=== PATIENT | female | born 1950 | race Caucasian/White ===

== ENCOUNTER → 2016-11-03 | Outpatient (REF) | payer MEDICARE, MEDICAID ==
[2016-11-03 12:53] LABS: ALBUMIN 3.7 GM/DL (3.2-5.2); ALBUMIN/GLOBULIN RATIO 1.23 (1.00-1.93); ALKALINE PHOSPHATASE 108 U/L (45-117); ALT/SGPT 22 U/L (12-78); ANION GAP 11 MEQ/L (8-16); AST/SGOT 28 U/L (15-37); BILIRUBIN,TOTAL 0.6 MG/DL (0.2-1.0); BLOOD UREA NITROGEN 18 MG/DL (7-18); CALCIUM LEVEL 9.1 MG/DL (8.8-10.2); CARBON DIOXIDE LEVEL 27 MEQ/L (21-32); CHLORIDE LEVEL 108 MEQ/L (98-107); CHOLESTEROL LEVEL 183 MG/DL (<200); CREATININE FOR GFR 0.68 MG/DL (0.55-1.02); GLOMERULAR FILTRATION RATE > 60.0 (>45); GLUCOSE, FASTING 88 MG/DL (80-110); POTASSIUM SERUM 4.3 MEQ/L (3.5-5.1); SODIUM LEVEL 146 MEQ/L (136-145); TOTAL PROTEIN 6.7 GM/DL (6.4-8.2); TRIGLYCERIDES LEVEL 142 MG/DL (<150)
== END ==
LOC: M SFHCPLAZ 09:16
PROVIDERS: ATTEND Nurse Practitioner Family
DX: I10 Essential (primary) hypertension (principal); E55.9 Vitamin D deficiency, unspecified

== ENCOUNTER → 2016-11-14 | Outpatient (CLI) | payer MEDICARE, MEDICAID ==
--- NOTE | 2016-11-16 11:17 | DEXA ---
AP SPINE L1 - L4 1.192 0.0 1.3 LT FEMUR TOTAL 0.768 -1.9 -0.9 RT FEMUR TOTAL 0.846 -1.3 -0.3 TOTAL BODY TOTAL OTHER DUAL FEMUR FRAX* ASSESSMENT Risk factors: None. 10 year probability of fracture Major osteoporotic fracture 8.8 % Hip fracture 0.9 % COMMENTS: Normal bone densitometry of the spine. There is low bone density of the left hip. There is low bone density of the right hip. There is degenerative change in the spine which may artificially elevate the BMD. The increased density of the spine does represent a significant change since . The decreased density of the left hip does represent a significant change since 09/12/2012. The increased density of the right hip does represent a significant change. The density of the spine has increased 6.5% since the initial exam on 2008. The spine density has increased 5.5% since the most recent exam on 09/12/2012. The density of the left hip has decreased 2.4% since the initial exam on 2008. The density of the left hip has decreased 1.5% since the most recent exam on . The density of the right hip has increased 3.7% since the initial exam on 2008. The density of the right hip has increased 1.8% since the most recent exam on . FOLLOW-UP: Recommendation for the next bone density exam: 2 years. [facility]
== END ==
LOC: M WHC 13:49
PROVIDERS: ATTEND Nurse Practitioner Family
DX: Z13.820 Encounter for screening for osteoporosis (principal); M85.80 Other specified disorders of bone density and structure, unspecified site; M81.0 Age-related osteoporosis without current pathological fracture

== ENCOUNTER → 2017-02-06 | Outpatient (REF) | payer MEDICARE, MEDICAID ==
[2017-02-06 13:03] LABS: ALBUMIN 3.9 GM/DL (3.2-5.2); ALKALINE PHOSPHATASE 106 U/L (45-117); ALT/SGPT 26 U/L (12-78); ANION GAP 8 MEQ/L (8-16); AST/SGOT 25 U/L (15-37); BILIRUBIN,TOTAL 0.5 MG/DL (0.2-1.0); BLOOD UREA NITROGEN 16 MG/DL (7-18); CALCIUM LEVEL 9.9 MG/DL (8.8-10.2); CARBON DIOXIDE LEVEL 28 MEQ/L (21-32); CHLORIDE LEVEL 109 MEQ/L (98-107); CREATININE FOR GFR 0.59 MG/DL (0.55-1.02); GLOMERULAR FILTRATION RATE > 60.0 (>45); GLUCOSE, FASTING 84 MG/DL (80-110); POTASSIUM SERUM 4.2 MEQ/L (3.5-5.1); SODIUM LEVEL 145 MEQ/L (136-145); TOTAL PROTEIN 6.9 GM/DL (6.4-8.2)
== END ==
LOC: M SFHCPLAZ 08:56
PROVIDERS: ATTEND Nurse Practitioner Family
DX: E78.5 Hyperlipidemia, unspecified (principal); E55.9 Vitamin D deficiency, unspecified

== ENCOUNTER → 2017-08-04 | Outpatient (REF) | payer MEDICARE, MEDICAID ==
[2017-08-04 12:38] LABS: ALBUMIN 4.2 GM/DL (3.2-5.2); ALBUMIN/GLOBULIN RATIO 1.27 (1.00-1.93); ALKALINE PHOSPHATASE 115 U/L (45-117); ALT/SGPT 24 U/L (12-78); ANION GAP 10 MEQ/L (8-16); AST/SGOT 27 U/L (7-37); BILIRUBIN,TOTAL 0.4 MG/DL (0.2-1.0); BLOOD UREA NITROGEN 21 MG/DL (7-18); CALCIUM LEVEL 9.2 MG/DL (8.8-10.2); CARBON DIOXIDE LEVEL 26 MEQ/L (21-32); CHLORIDE LEVEL 108 MEQ/L (98-107); CREATININE FOR GFR 0.69 MG/DL (0.55-1.02); GLOMERULAR FILTRATION RATE > 60.0 (>45); GLUCOSE, FASTING 97 MG/DL (80-110); POTASSIUM SERUM 4.3 MEQ/L (3.5-5.1); SODIUM LEVEL 144 MEQ/L (136-145); TOTAL PROTEIN 7.5 GM/DL (6.4-8.2)
== END ==
LOC: M SFHCPLAZ 08:30
PROVIDERS: ATTEND Nurse Practitioner Family
DX: I10 Essential (primary) hypertension (principal); E55.9 Vitamin D deficiency, unspecified

== ENCOUNTER → 2017-11-09 | Outpatient (REF) | payer MEDICARE, MEDICAID | LOC: M SFHCPLAZ 11:36 | DX: E78.5 Hyperlipidemia, unspecified (principal); E55.9 Vitamin D deficiency, unspecified; I10 Essential (primary) hypertension ==

== ENCOUNTER → 2018-10-30 | Outpatient (CLI) | payer MEDICARE, MEDICAID ==
--- NOTE | 2018-10-30 14:30 | REP ---
Low-dose lung screening CT of the chest without IV contrast: The study is performed without IV contrast. Images are presented at lung windowing only. Comparison is the chest CT with IV contrast dated 03/04/2008. There is a 7 mm nodule inferiorly in the anterior segment right lower lobe on image 89. This is along the minor fissure. Upon remeasuring, this nodule measured 7 mm on the prior study. There are no other nodules or masses. There are no infiltrates or effusions. There are numerous bulla throughout the lung parenchyma bilaterally. This is unchanged. Impression: Stable right upper lobe lung nodule. Category II low-dose lung screening CT of the lungs. Probability of malignancy is less than 1%. Annual follow-up low-dose lung screening CT is recommended. Electronically Signed by Ji Baez MD 10/30/2018 02:22 P
== END ==
LOC: M RAD 10:46
PROVIDERS: ATTEND Internal Medicine Pulmonary Disease
DX: Z12.2 Encounter for screening for malignant neoplasm of respiratory organs (principal); R91.8 Other nonspecific abnormal finding of lung field; Z87.891 Personal history of nicotine dependence

== ENCOUNTER → 2018-11-13 | Outpatient (REF) | payer MEDICARE, MEDICAID ==
[2018-11-13 14:58] LABS: HEMATOCRIT 47.9 % (36.0-47.0); HEMOGLOBIN 15.6 g/dl (12.0-15.5); MEAN CORPUSCULAR HEMOGLOBIN 29.8 pg (27.0-33.0); MEAN CORPUSCULAR HGB CONC 32.6 g/dl (32.0-36.5); MEAN CORPUSCULAR VOLUME 91.4 fl (80.0-96.0); PLATELET COUNT, AUTOMATED 352 10^3/uL (150-450); RED BLOOD COUNT 5.24 10^6/uL (4.00-5.40); WHITE BLOOD COUNT 11.2 10^3/uL (4.0-10.0)
[2018-11-13 15:29] LABS: ALT/SGPT 24 U/L (12-78); BILIRUBIN,TOTAL 0.7 MG/DL (0.2-1.0); BLOOD UREA NITROGEN 12 MG/DL (7-18); CALCIUM LEVEL 9.2 MG/DL (8.8-10.2); CARBON DIOXIDE LEVEL 29 MEQ/L (21-32); CHLORIDE LEVEL 103 MEQ/L (98-107); CHOLESTEROL LEVEL 182 MG/DL (<200); CHOLESTEROL RISK RATIO 3.137 (<5); CREATININE FOR GFR 0.66 MG/DL (0.55-1.30); GLOMERULAR FILTRATION RATE > 60.0 (>45); GLUCOSE, FASTING 100 MG/DL (70-100); HDL CHOLESTEROL 58 MG/DL (>40); LDL CHOLESTEROL 104 MG/DL (<100); MAGNESIUM LEVEL 2.3 MG/DL (1.8-2.4); NON-HDL-C 124 MG/DL; SODIUM LEVEL 141 MEQ/L (136-145); TOTAL PROTEIN 7.2 GM/DL (6.4-8.2); TRIGLYCERIDES LEVEL 98 MG/DL (<150)
[2018-11-13 15:30] LABS: MAU/CREAT RATIO 131.2 MCG/MG (0.0-30.0); TOTAL 25(OH) VITAMIN D 26.1 NG/ML (30.0-100.0)
[2018-11-13 16:08] LABS: BASO # 0.1 10^3/uL (0.0-0.2); BASO % 0.5 % (0.0-1.0); EOS # 0.2 10^3/uL (0.0-0.50); EOS % 1.5 % (0.0-3.0); LYMPH # 1.4 10^3/uL (1.5-4.5); LYMPH % 12.5 % (24.0-44.0); NEUTROPHILS # 8.7 10^3/uL (1.8-7.7); NEUTROPHILS % 76.2 % (36.0-66.0)
== END ==
LOC: M SFHCPLAZ 11:16
PROVIDERS: ATTEND Nurse Practitioner Family
DX: Z00.00 Encounter for general adult medical examination without abnormal findings (principal); I10 Essential (primary) hypertension; E78.5 Hyperlipidemia, unspecified; E55.9 Vitamin D deficiency, unspecified; R53.83 Other fatigue
CPT/HCPCS: 36415; 80053; 80061; 82043; 82306; 83735; 84443; 85027; 90732; 93005; G0009

== ENCOUNTER → 2018-12-21 | Outpatient (CLI) | payer MEDICARE, MEDICAID ==
[2018-12-21 14:46] LABS: CALCIUM LEVEL 9.2 MG/DL (8.8-10.2); CREATININE FOR GFR 1.32 MG/DL (0.55-1.30); GLOMERULAR FILTRATION RATE 42.7 (>45); POTASSIUM SERUM 4.3 MEQ/L (3.5-5.1)
== END ==
LOC: M LAB 13:08
PROVIDERS: ATTEND Internal Medicine Pulmonary Disease
DX: I10 Essential (primary) hypertension (principal)

== ENCOUNTER → 2018-12-28 | Outpatient (REF) | payer MEDICARE, MEDICAID ==
[2018-12-28 16:08] LABS: ALBUMIN 3.7 GM/DL (3.2-5.2); BLOOD UREA NITROGEN 20 MG/DL (7-18); CALCIUM LEVEL 9.5 MG/DL (8.8-10.2); CARBON DIOXIDE LEVEL 31 MEQ/L (21-32); CHLORIDE LEVEL 107 MEQ/L (98-107); CREATININE FOR GFR 0.88 MG/DL (0.55-1.30); GLOMERULAR FILTRATION RATE > 60.0 (>45); GLUCOSE, FASTING 93 MG/DL (70-100); PHOSPHORUS LEVEL 4.4 MG/DL (2.5-4.9); POTASSIUM SERUM 4.6 MEQ/L (3.5-5.1); SODIUM LEVEL 144 MEQ/L (136-145)
[2018-12-28 16:14] LABS: APPEARANCE, URINE CLEAR (CLEAR); BACTERIA, URINE AUTO NEGATIVE (NEGATIVE); BILIRUBIN, URINE AUTO NEGATIVE (NEGATIVE); BLOOD, URINE BLOOD NEGATIVE (NEGATIVE); COLOR, URINE YELLOW (YELLOW); GLUCOSE, URINE (UA) AUTO NEGATIVE (NEGATIVE); KETONE, URINE AUTO NEGATIVE (NEGATIVE); LEUKOCYTE ESTERASE, URINE AUTO 1+ (NEGATIVE); NITRITE, URINE AUTO NEGATIVE (NEGATIVE); PROTEIN, URINE AUTO NEGATIVE (NEGATIVE); RBC, URINE AUTO 3 /HPF (0-3); SPECIFIC GRAVITY URINE AUTO 1.014 (1.002-1.035); SQUAMOUS EPITHELIAL CELL UR AU 0 /HPF (0-6); UROBILINOGEN, URINE AUTO 0.2 mg/dL (0.0-2.0); WBC, URINE AUTO 2 /HPF (0-3)
== END ==
LOC: M SFHCPLAZ 14:06
PROVIDERS: ATTEND Nurse Practitioner Family
DX: N17.9 Acute kidney failure, unspecified (principal)
CPT/HCPCS: 36415; 80069; 81001; G0463

== ENCOUNTER → 2019-01-31 | Outpatient (REF) | payer MEDICARE, MEDICAID ==
[2019-01-31 16:21] LABS: HEMATOCRIT 41.6 % (36.0-47.0); HEMOGLOBIN 13.5 g/dl (12.0-15.5); MEAN CORPUSCULAR HEMOGLOBIN 29.6 pg (27.0-33.0); MEAN CORPUSCULAR HGB CONC 32.5 g/dl (32.0-36.5); MEAN CORPUSCULAR VOLUME 91.2 fl (80.0-96.0); PLATELET COUNT, AUTOMATED 267 10^3/uL (150-450); RED BLOOD COUNT 4.56 10^6/uL (4.00-5.40); WHITE BLOOD COUNT 8.8 10^3/uL (4.0-10.0)
== END ==
LOC: M SFHCPLAZ 14:23
PROVIDERS: ATTEND Nurse Practitioner Family
DX: E55.9 Vitamin D deficiency, unspecified (principal); J44.9 Chronic obstructive pulmonary disease, unspecified; K21.9 Gastro-esophageal reflux disease without esophagitis
CPT/HCPCS: 36415; 82306; 85027; G0463

== ENCOUNTER → 2019-06-26 | Outpatient (CLI) | payer MEDICARE, MEDICAID ==
[2019-06-26 11:16] LABS: HEMATOCRIT 40.8 % (36.0-47.0); HEMOGLOBIN 13.1 g/dl (12.0-15.5); MEAN CORPUSCULAR HEMOGLOBIN 30.1 pg (27.0-33.0); MEAN CORPUSCULAR HGB CONC 32.1 g/dl (32.0-36.5); MEAN CORPUSCULAR VOLUME 93.8 fl (80.0-96.0); PLATELET COUNT, AUTOMATED 287 10^3/uL (150-450); RED BLOOD COUNT 4.35 10^6/uL (4.00-5.40); WHITE BLOOD COUNT 8.6 10^3/uL (4.0-10.0)
[2019-06-26 11:44] LABS: BLOOD UREA NITROGEN 24 MG/DL (7-18); CARBON DIOXIDE LEVEL 30 MEQ/L (21-32); CHLORIDE LEVEL 105 MEQ/L (98-107); CHOLESTEROL LEVEL 189 MG/DL (<200); CHOLESTEROL RISK RATIO 2.779 (<5); CREATININE FOR GFR 0.87 MG/DL (0.55-1.30); GLOMERULAR FILTRATION RATE > 60.0 (>45); GLUCOSE, FASTING 95 MG/DL (70-100); HDL CHOLESTEROL 68 MG/DL (>40); LDL CHOLESTEROL 103 MG/DL (<100); NON-HDL-C 121 MG/DL; POTASSIUM SERUM 3.9 MEQ/L (3.5-5.1); SODIUM LEVEL 142 MEQ/L (136-145); TRIGLYCERIDES LEVEL 89 MG/DL (<150)
== END ==
LOC: M LAB 08:58
PROVIDERS: ATTEND Physician Assistant
DX: I10 Essential (primary) hypertension (principal)

== ENCOUNTER → 2019-09-30 | Outpatient (REF) | payer MEDICARE, MEDICAID ==
[2019-09-30 13:34] LABS: BASO # 0.1 10^3/uL (0.0-0.2); BASO % 0.7 % (0.0-1.0); EOS # 0.3 10^3/uL (0.0-0.5); EOS % 2.8 % (0.0-3.0); HEMATOCRIT 43.9 % (36.0-47.0); HEMOGLOBIN 13.9 g/dl (12.0-15.5); LYMPH # 2.5 10^3/uL (1.5-5.0); MEAN CORPUSCULAR HGB CONC 31.7 g/dl (32.0-36.5); MEAN CORPUSCULAR VOLUME 94.6 fl (80.0-96.0); MONO # 0.8 10^3/uL (0.0-0.8); MONO % 6.7 % (0.0-5.0); NEUTROPHILS # 7.7 10^3/uL (1.5-8.5); NEUTROPHILS % 67.4 % (36.0-66.0); PLATELET COUNT, AUTOMATED 321 10^3/uL (150-450); RED BLOOD COUNT 4.64 10^6/uL (4.00-5.40); WHITE BLOOD COUNT 11.4 10^3/uL (4.0-10.0)
[2019-09-30 13:52] LABS: HEMOGLOBIN A1c 6.1 %
[2019-09-30 14:00] LABS: ALBUMIN 4.2 GM/DL (3.2-5.2); ALT/SGPT 31 U/L (12-78); BILIRUBIN,TOTAL 0.5 MG/DL (0.2-1.0); BLOOD UREA NITROGEN 31 MG/DL (7-18); CALCIUM LEVEL 9.9 MG/DL (8.8-10.2); CARBON DIOXIDE LEVEL 31 MEQ/L (21-32); CHLORIDE LEVEL 105 MEQ/L (98-107); CHOLESTEROL LEVEL 198 MG/DL (<200); CREATININE FOR GFR 0.94 MG/DL (0.55-1.30); FOLATE 13.2 NG/ML; GLOMERULAR FILTRATION RATE > 60.0 (>45); GLUCOSE, FASTING 153 MG/DL (70-100); HDL CHOLESTEROL 66 MG/DL (>40); LDL CHOLESTEROL 113 MG/DL (<100); NON-HDL-C 132 MG/DL; POTASSIUM SERUM 4.2 MEQ/L (3.5-5.1); SODIUM LEVEL 144 MEQ/L (136-145); TOTAL PROTEIN 7.2 GM/DL (6.4-8.2); TRIGLYCERIDES LEVEL 96 MG/DL (<150); VITAMIN B12 LEVEL 385 PG/ML
== END ==
LOC: M SFHCPLAZ 11:17
PROVIDERS: ATTEND Physician Assistant
DX: R42 Dizziness and giddiness (principal); E78.5 Hyperlipidemia, unspecified; I10 Essential (primary) hypertension; Z13.1 Encounter for screening for diabetes mellitus; Z79.899 Other long term (current) drug therapy
CPT/HCPCS: 36415; 80053; 80061; 82607; 82746; 83036; 85025; G0463

== ENCOUNTER → 2019-10-29 | Outpatient (CLI) | payer MEDICARE, MEDICAID ==
--- NOTE | 2019-10-29 11:21 | REP ---
Low-dose lung screening CT of the chest: The study is performed without IV contrast. The images are presented at lung windowing only. Comparisons are the low-dose lung screening chest CT dated 10/30/[address] with IV contrast dated 03/04 2008. There is a 7 mm lung nodule inferiorly in the anterior segment of the right upper lobe along the minor fissure on image 58 , unchanged from both prior studies, likely a benign granuloma. There are no other lung nodules or masses. There are no infiltrates. There are no pleural effusions. There is extensive bullous replacement of the lung parenchyma, as previously. There is chronic pleuroparenchymal scarring in the lung apices, unchanged from both prior studies. Impression: Category II low-dose lung screening CT of the chest. The probability of malignancy is less than 1%. Depending on risk factors consider annual follow-up low-dose lung screening chest CT. Electronically Signed by Ji Baez MD 10/29/2019 11:12 A
== END ==
LOC: M RAD 08:49
PROVIDERS: ATTEND Internal Medicine Pulmonary Disease
DX: Z87.891 Personal history of nicotine dependence (principal)

== ENCOUNTER 2019-11-26 15:10 | Emergency (ER) | payer MEDICARE, MEDICAID ==
[~2019-11-26] VITALS: Ht 162.6 cm; Wt 70.3 kg
[2019-11-26] MEDS ORDERED: hydrALAZINE INJ 20 MG/ML VIAL IV ONE ×2 (15:45→17:15)
[2019-11-26] MEDS ORDERED: MECL12.589 (15:55)
[2019-11-26] MEDS ORDERED: PROAAER10 (15:55)
[2019-11-26] MEDS ORDERED: COMBIVENT RESPIMAT 100-20MCG INHALER 4GM INH ONE (16:15)
[2019-11-26 16:27] LABS: BASO # 0.1 10^3/uL (0.0-0.2); BASO % 0.6 % (0.0-1.0); EOS # 0.3 10^3/uL (0.0-0.5); EOS % 2.7 % (0.0-3.0); HEMATOCRIT 39.5 % (36.0-47.0); HEMOGLOBIN 12.6 g/dl (12.0-15.5); LYMPH # 1.6 10^3/uL (1.5-5.0); LYMPH % 14.1 % (24.0-44.0); MEAN CORPUSCULAR HEMOGLOBIN 30.2 pg (27.0-33.0); MEAN CORPUSCULAR HGB CONC 31.9 g/dl (32.0-36.5); MEAN CORPUSCULAR VOLUME 94.7 fl (80.0-96.0); MONO # 0.8 10^3/uL (0.0-0.8); NEUTROPHILS # 8.8 10^3/uL (1.5-8.5); NEUTROPHILS % 75.3 % (36.0-66.0); PLATELET COUNT, AUTOMATED 293 10^3/uL (150-450); RED BLOOD COUNT 4.17 10^6/uL (4.00-5.40); WHITE BLOOD COUNT 11.7 10^3/uL (4.0-10.0)
[2019-11-26 16:55] LABS: ALBUMIN 3.9 GM/DL (3.2-5.2); ALT/SGPT 27 U/L (12-78); BILIRUBIN,DIRECT 0.1 MG/DL (0.0-0.2); BILIRUBIN,TOTAL 0.4 MG/DL (0.2-1.0); BLOOD UREA NITROGEN 21 MG/DL (7-18); CARBON DIOXIDE LEVEL 32 MEQ/L (21-32); CHLORIDE LEVEL 109 MEQ/L (98-107); CREATININE FOR GFR 0.92 MG/DL (0.55-1.30); GLOMERULAR FILTRATION RATE > 60.0 (>45); GLUCOSE, FASTING 92 MG/DL (70-100); POTASSIUM SERUM 3.9 MEQ/L (3.5-5.1); SODIUM LEVEL 142 MEQ/L (136-145)
[2019-11-26 16:58] LABS: CK-MB VALUE MASS 1.6 NG/ML (<3.6); CPK CREATINE PHOSPHOKINASE 41 U/L (26-192); NT-PRO BNP 513 PG/ML (<125); TROPONIN I < 0.02 NG/ML (< 0.10)
--- NOTE | 2019-11-26 17:27 | REP ---
Portable chest x-ray: Two views. History: Dyspnea and cough. Comparison chest x-ray: February 05, 2014. Findings: EKG monitoring electrodes and oxygen delivery tubing are seen. The lungs are hyperinflated consistent with COPD. Heart is not enlarged. No focal infiltrate is appreciated. Impression: Hyperinflation consistent with COPD. No focal infiltrate. Otherwise no acute disease. Electronically Signed by Andrew Martínez MD 11/27/2019 08:57 A
[2019-11-26] MEDS ORDERED: VERAPAMIL 80 MG TAB PO ONE (17:30)
[2019-11-26 17:33] VITALS: BP 193/90
[2019-11-26] MEDS ORDERED: VERA240C3 PO (19:33)
[2019-11-26 20:10] VITALS: BP 181/81
--- NOTE | 2019-11-27 10:32 | ECGEPIP ---
[facility] - ED Test Date: 2019-11-26 Pat Name: JOSÉ TERRAZAS Department: Room: - Gender: Female Contact Manager: : [id number] Requested By: Tosin Zurita Order Number: [id number] Reading MD: Jem Talley Measurements Intervals [place]ola Rate: 84 P: 83 HI: 167 QRS: 63 QRSD: 85 T: 58 QT: 388 QTc: 460 Interpretive Statements SINUS RHYTHM MINIMAL ST DEPRESSION BASELINE ARTIFACT AFFECTS INTERPRETATION NO PRIORS FOR COMPARISON Electronically Signed on 11-27-2019 10:32:28 EDT by Jem Talley
== END 2019-11-26 20:13 | disposition home or self-care (01) ==
LOC: M ED 15:10
DX: I10 Essential (primary) hypertension (principal); J44.1 Chronic obstructive pulmonary disease with (acute) exacerbation; R51 Headache; R35.0 Frequency of micturition; R07.9 Chest pain, unspecified; E78.5 Hyperlipidemia, unspecified; Z99.81 Dependence on supplemental oxygen; Z87.891 Personal history of nicotine dependence; Z79.899 Other long term (current) drug therapy; Z79.82 Long term (current) use of aspirin

== ENCOUNTER → 2020-06-24 | Outpatient (CLI) | payer MEDICARE, MEDICAID ==
[~2020-06-24] MED LIST: MECL12.589; PROAAER10; VERA240C3 PO
--- NOTE | 2020-06-24 16:39 | REPPI ---
INDICATION: COUGH,COPD,SOB. COMPARISON: Multiple, the latest 11/26/2019. TECHNIQUE: PA and lateral views. FINDINGS: The lung mathias are again seen to be hyperexpanded. There are basilar fibrotic changes status quo.. The cardiomediastinal silhouette is unchanged. The heart is not enlarged. The pulmonary arteries are enlarged. No acute patchy parenchymal opacities or pleural effusions have developed. There is no significant change in the appearance of the osseous structures. IMPRESSION: There is no acute cardiopulmonary disease. COPD and evidence of pulmonary arterial hypertension. <Electronically signed by Oswaldo Jeffrey > 06/24/20 [id number]
== END ==
LOC: M PLAIMG 14:45
PROVIDERS: ATTEND Physician Assistant
DX: R05 Cough (principal); J44.1 Chronic obstructive pulmonary disease with (acute) exacerbation
CPT/HCPCS: 71046; G0463

== ENCOUNTER → 2020-09-21 | Outpatient (REF) | payer MEDICARE, MEDICAID ==
[~2020-09-21] MED LIST changes: -MECL12.589; +MECL12.590
[2020-09-21 16:44] LABS: HEMATOCRIT 41.3 % (36.0-47.0); HEMOGLOBIN 13.1 g/dl (12.0-15.5); MEAN CORPUSCULAR HEMOGLOBIN 30.5 pg (27.0-33.0); MEAN CORPUSCULAR HGB CONC 31.7 g/dl (32.0-36.5); MEAN CORPUSCULAR VOLUME 96.3 fl (80.0-96.0); PLATELET COUNT, AUTOMATED 279 10^3/uL (150-450); RED BLOOD COUNT 4.29 10^6/uL (4.00-5.40); WHITE BLOOD COUNT 10.3 10^3/uL (4.0-10.0)
[2020-09-21 17:05] LABS: ALT/SGPT 22 U/L (12-78); BILIRUBIN,TOTAL 0.3 MG/DL (0.2-1.0); BLOOD UREA NITROGEN 23 MG/DL (7-18); CALCIUM LEVEL 10.3 MG/DL (8.8-10.2); CARBON DIOXIDE LEVEL 37 MEQ/L (21-32); CHLORIDE LEVEL 102 MEQ/L (98-107); CREATININE FOR GFR 0.83 MG/DL (0.55-1.30); GLOMERULAR FILTRATION RATE > 60.0 (>45); GLUCOSE, FASTING 125 MG/DL (70-100); NT-PRO BNP 260 PG/ML (<125); POTASSIUM SERUM 4.1 MEQ/L (3.5-5.1); SODIUM LEVEL 143 MEQ/L (136-145); TOTAL PROTEIN 6.9 GM/DL (6.4-8.2)
== END ==
LOC: M PLALAB 15:29
PROVIDERS: ATTEND Physician Assistant
DX: R06.02 Shortness of breath (principal)

== ENCOUNTER → 2020-09-21 | Outpatient (REF) | payer MEDICARE, MEDICAID ==
[2020-09-21 16:45] LABS: BASO # 0.1 10^3/uL (0.0-0.2); BASO % 0.7 % (0.0-1.0); EOS # 0.5 10^3/uL (0.0-0.5); EOS % 4.8 % (0.0-3.0); HEMATOCRIT 40.7 % (36.0-47.0); HEMOGLOBIN 12.7 g/dl (12.0-15.5); LYMPH # 1.8 10^3/uL (1.5-5.0); LYMPH % 18.2 % (24.0-44.0); MEAN CORPUSCULAR HGB CONC 31.2 g/dl (32.0-36.5); MEAN CORPUSCULAR VOLUME 96.2 fl (80.0-96.0); MONO # 0.7 10^3/uL (0.0-0.8); MONO % 7.3 % (0.0-5.0); NEUTROPHILS # 6.9 10^3/uL (1.5-8.5); NEUTROPHILS % 68.7 % (36.0-66.0); PLATELET COUNT, AUTOMATED 274 10^3/uL (150-450); RED BLOOD COUNT 4.23 10^6/uL (4.00-5.40); WHITE BLOOD COUNT 10.1 10^3/uL (4.0-10.0)
[2020-09-21 17:08] LABS: ALBUMIN 3.8 GM/DL (3.2-5.2); ALT/SGPT 20 U/L (12-78); BILIRUBIN,TOTAL 0.4 MG/DL (0.2-1.0); BLOOD UREA NITROGEN 23 MG/DL (7-18); CARBON DIOXIDE LEVEL 36 MEQ/L (21-32); CHLORIDE LEVEL 102 MEQ/L (98-107); CHOLESTEROL LEVEL 210 MG/DL (<200); GLOMERULAR FILTRATION RATE > 60.0 (>45); GLUCOSE, FASTING 121 MG/DL (70-100); HDL CHOLESTEROL 65 MG/DL (>40); LDL CHOLESTEROL 118 MG/DL (<100); NON-HDL-C 145 MG/DL; SODIUM LEVEL 143 MEQ/L (136-145); TOTAL 25(OH) VITAMIN D 31.2 NG/ML (30.0-100.0); TOTAL PROTEIN 6.8 GM/DL (6.4-8.2); TRIGLYCERIDES LEVEL 134 MG/DL (<150)
[2020-09-21 17:27] LABS: HEMOGLOBIN A1c 5.8 %
== END ==
LOC: M PLALAB 15:27
PROVIDERS: ATTEND Physician Assistant
DX: J44.9 Chronic obstructive pulmonary disease, unspecified (principal); I10 Essential (primary) hypertension; E78.5 Hyperlipidemia, unspecified; E55.9 Vitamin D deficiency, unspecified; R73.01 Impaired fasting glucose; R06.02 Shortness of breath

== ENCOUNTER → 2020-10-06 | Outpatient (REF) | payer MEDICARE, MEDICAID ==
[2020-10-06 18:03] LABS: HEMATOCRIT 42.1 % (36.0-47.0); HEMOGLOBIN 12.9 g/dl (12.0-15.5); MEAN CORPUSCULAR HEMOGLOBIN 29.3 pg (27.0-33.0); MEAN CORPUSCULAR HGB CONC 30.6 g/dl (32.0-36.5); MEAN CORPUSCULAR VOLUME 95.7 fl (80.0-96.0); PLATELET COUNT, AUTOMATED 314 10^3/uL (150-450)
== END ==
LOC: M SFHCPLAZ 14:37
PROVIDERS: ATTEND Physician Assistant
DX: J44.9 Chronic obstructive pulmonary disease, unspecified (principal); D72.829 Elevated white blood cell count, unspecified

== ENCOUNTER → 2021-09-21 | Outpatient (CLI) | payer MEDICARE, MEDICAID ==
[~2021-09-21] MED LIST changes: +MECL-136; -MECL12.590
[2021-09-21 13:29] LABS: BASO # 0.1 10^3/uL (0.0-0.2); BASO % 0.5 % (0.0-1.0); EOS # 0.3 10^3/uL (0.0-0.5); EOS % 2.8 % (0.0-3.0); HEMATOCRIT 42.3 % (36.0-47.0); HEMOGLOBIN 13.4 g/dl (12.0-15.5); LYMPH # 2.1 10^3/uL (1.5-5.0); MEAN CORPUSCULAR HEMOGLOBIN 29.8 pg (27.0-33.0); MEAN CORPUSCULAR HGB CONC 31.7 g/dl (32.0-36.5); MONO # 0.9 10^3/uL (0.0-0.8); MONO % 7.7 % (2.0-8.0); NEUTROPHILS # 8.7 10^3/uL (1.5-8.5); NEUTROPHILS % 71.7 % (36.0-66.0); PLATELET COUNT, AUTOMATED 279 10^3/uL (150-450); WHITE BLOOD COUNT 12.2 10^3/uL (4.0-10.0)
[2021-09-21 13:57] LABS: ALT/SGPT 27 U/L (12-78); BILIRUBIN,TOTAL 0.4 MG/DL (0.2-1.0); BLOOD UREA NITROGEN 22 MG/DL (7-18); CARBON DIOXIDE LEVEL 33 MEQ/L (21-32); CHLORIDE LEVEL 103 MEQ/L (98-107); CHOLESTEROL LEVEL 199 MG/DL (<200); CHOLESTEROL RISK RATIO 3.109 (<5); CREATININE FOR GFR 0.81 MG/DL (0.55-1.30); GLOMERULAR FILTRATION RATE > 60.0 (>45); GLUCOSE, FASTING 105 MG/DL (70-100); HDL CHOLESTEROL 64 MG/DL (>40); LDL CHOLESTEROL 113 MG/DL (<100); NON-HDL-C 135 MG/DL; POTASSIUM SERUM 3.7 MEQ/L (3.5-5.1); SODIUM LEVEL 142 MEQ/L (136-145); TRIGLYCERIDES LEVEL 110 MG/DL (<150)
== END ==
LOC: M PLALAB 10:58
PROVIDERS: ATTEND Nurse Practitioner Family
DX: E78.5 Hyperlipidemia, unspecified (principal); I10 Essential (primary) hypertension; E55.9 Vitamin D deficiency, unspecified; R73.01 Impaired fasting glucose

== ENCOUNTER 2021-12-22 14:44 | Inpatient (IN) | payer MEDICARE, MEDICAID ==
[~2021-12-22] VITALS: Ht 162.6 cm; Wt 52.0 kg
[~2021-12-22 14:44] MED LIST changes: +CARV12.5 PO; +CARV6.25 PO; +CHLO125TA PO; +LISI40TA4 PO; +OMEP40CA4 PO; +PRED10TA2 PO; -PROAAER10; +PROAAER10 INH
[2021-12-22] MEDS ORDERED: methylPREDNISolone 125MG 2ML VIAL IV ONE (15:20)
[2021-12-22] MEDS ORDERED: hydrALAZINE 20MG/ML 1ML VIAL (J0360 PER 20MG) IV STA (15:20)
[2021-12-22] MEDS ORDERED: COMBIVENT RESPIMAT 100-20MCG INHALER 4GM INH ONE (15:20)
[2021-12-22 15:51] LABS: BASO % 0.2 % (0.0-1.0); HEMATOCRIT 46.5 % (36.0-47.0); HEMOGLOBIN 14.5 g/dl (12.0-15.5); LYMPH # 0.7 10^3/uL (1.5-5.0); LYMPH % 3.7 % (24.0-44.0); MEAN CORPUSCULAR HEMOGLOBIN 30.3 pg (27.0-33.0); MEAN CORPUSCULAR HGB CONC 31.2 g/dl (32.0-36.5); MEAN CORPUSCULAR VOLUME 97.3 fl (80.0-96.0); MONO # 0.8 10^3/uL (0.0-0.8); MONO % 4.1 % (2.0-8.0); NEUTROPHILS % 90.6 % (36.0-66.0); PLATELET COUNT, AUTOMATED 354 10^3/uL (150-450); RED BLOOD COUNT 4.78 10^6/uL (4.00-5.40); WHITE BLOOD COUNT 19.9 10^3/uL (4.0-10.0)
[2021-12-22 15:54] LABS: ABG BASE EXCESS 6.2 (-2.0-2.0); ABG HCO3 33.9 MEQ/L (22.0-26.0); ABG O2 SATURATION 98.7 % (95.0-99.0); ABG PARTIAL PRESSURE O2 139.3 mmHg (75.0-100.0); ABG STANDARD HCO3 30.2 MEQ/L (22.0-26.0); ABG TOTAL CO2 35.8 MEQ/L (23.0-31.0); ABG pH (ARTERIAL) 7.353 UNITS (7.350-7.450)
[2021-12-22 15:56] LABS: ABG PARTIAL PRESSURE CO2 62.4 mmHg (35.0-45.0)
[2021-12-22 16:02] LABS: PROTHROMBIN TIME 13.6 SECONDS (12.7-14.5)
[2021-12-22 16:03] LABS: PARTIAL THROMBOPLASTIN TIME 32.4 SECONDS (25.9-37.0)
[2021-12-22 16:06] LABS: ALBUMIN 3.5 GM/DL (3.2-5.2); ALT/SGPT 52 U/L (12-78); BILIRUBIN,DIRECT 0.1 MG/DL (0.0-0.2); BILIRUBIN,TOTAL 0.6 MG/DL (0.2-1.0); BLOOD UREA NITROGEN 25 MG/DL (7-18); CARBON DIOXIDE LEVEL 37 MEQ/L (21-32); CHLORIDE LEVEL 99 MEQ/L (98-107); CREATININE FOR GFR 0.62 MG/DL (0.55-1.30); GLOMERULAR FILTRATION RATE > 60.0 (>39); GLUCOSE, FASTING 190 MG/DL (70-100); NT-PRO BNP 2297 PG/ML (<125); POTASSIUM SERUM 4.7 MEQ/L (3.5-5.1); SODIUM LEVEL 143 MEQ/L (136-145); THYROID STIMULATING HORMONE 0.605 uIU/ML (0.358-3.740); TOTAL PROTEIN 6.9 GM/DL (6.4-8.2)
[2021-12-22] MEDS ORDERED: PERF20NE2 INH (16:09)
[2021-12-22] MEDS ORDERED: LISI40TA4 PO (16:09)
[2021-12-22] MEDS ORDERED: ASPI81CH33 PO (16:09)
[2021-12-22] MEDS ORDERED: PULM0.5S INH (16:09)
[2021-12-22] MEDS ORDERED: ISOVUE-370 76% 100ML VIAL As Ordered ONE (16:10)
[2021-12-22 16:26] LABS: CK-MB VALUE MASS 2.1 NG/ML (<3.6); MB/CK RELATIVE INDEX 6.77 (< OR =4)
[2021-12-22] MEDS ORDERED: cefTRIAXone SOD 1 GM in D5W MINI-BAG PLUS 50 ML IV ONE (16:55)
[2021-12-22] MEDS ORDERED: AZITHROMYCIN INJ 500 MG, VIAL MATE ADAPTER 1 EACH in NS 250 ML IV ONE (16:55)
[2021-12-22 18:01] LABS: CK-MB VALUE MASS 2.6 NG/ML (<3.6); MB/CK RELATIVE INDEX 9.63 (< OR =4)
[2021-12-22] MEDS ORDERED: IPRATROPIUM 0.5MG/ALBUTEROL 2.5MG INH SOL UD 3ML (DUONEB) NEB ONE (18:05)
[2021-12-22] MEDS ORDERED: LABETALOL 100MG/20ML VIAL IV STA (18:10)
[2021-12-22] MEDS ORDERED: OMEP40CA5 PO (18:54)
[2021-12-22] MEDS ORDERED: CARV6.25 PO (18:54)
[2021-12-22] MEDS ORDERED: PRED10TA2 PO (18:54)
[2021-12-22] MEDS ORDERED: HOME MED LIST COMPLETE! XX SCH (19:00)
[2021-12-22] MEDS ORDERED: ACETAMINOPHEN TAB 650MG DOSE (2X325MG) PO PRN (20:20)
[2021-12-22] MEDS ORDERED: IPRATROPIUM 0.5MG/ALBUTEROL 2.5MG INH SOL UD 3ML (DUONEB) NEB PRN (20:30)
[2021-12-22 22:13] VITALS: BP 160/72
[2021-12-22 23:28] LABS: CK-MB VALUE MASS 2.9 NG/ML (<3.6); MB/CK RELATIVE INDEX 11.15 (< OR =4)
[2021-12-23] VITALS (11 sets, daily range): BP systolic 130–189; BP diastolic 60–85; O2SAT 93–98
[2021-12-23] MEDS: hydrALAZINE 20MG/ML 1ML VIAL (J0360 PER 20MG) IV PRN ×2 (04:27→16:05)
[2021-12-23] MEDS: DOXYCYCLINE HYCLATE 100 MG in D5W MINI-BAG PLUS 100 ML IV SCH ×2 (05:16→17:36)
[2021-12-23] MEDS: ALBUTEROL 90 MCG/ACT 8GM HFA INHALER INH PRN ×2 (05:39→16:44)
[2021-12-23] MEDS ORDERED: amLODIPine 5 MG TAB PO SCH (06:00)
[2021-12-23 06:17] LABS: HEMATOCRIT 42.7 % (36.0-47.0); HEMOGLOBIN 14.1 g/dl (12.0-15.5); MEAN CORPUSCULAR HEMOGLOBIN 31.1 pg (27.0-33.0); MEAN CORPUSCULAR VOLUME 94.1 fl (80.0-96.0); PLATELET COUNT, AUTOMATED 395 10^3/uL (150-450); RED BLOOD COUNT 4.54 10^6/uL (4.00-5.40); WHITE BLOOD COUNT 24.3 10^3/uL (4.0-10.0)
[2021-12-23 06:41] LABS: ALBUMIN 2.9 GM/DL (3.2-5.2); ALT/SGPT 38 U/L (12-78); BILIRUBIN,TOTAL 0.5 MG/DL (0.2-1.0); BLOOD UREA NITROGEN 19 MG/DL (7-18); CALCIUM LEVEL 10.1 MG/DL (8.8-10.2); CARBON DIOXIDE LEVEL 37 MEQ/L (21-32); CHLORIDE LEVEL 101 MEQ/L (98-107); CREATININE FOR GFR 0.56 MG/DL (0.55-1.30); GLOMERULAR FILTRATION RATE > 60.0 (>39); GLUCOSE, FASTING 145 MG/DL (70-100); MAGNESIUM LEVEL 2.4 MG/DL (1.8-2.4); POTASSIUM SERUM 3.9 MEQ/L (3.5-5.1); SODIUM LEVEL 143 MEQ/L (136-145); TOTAL PROTEIN 6.6 GM/DL (6.4-8.2)
[2021-12-23 06:43] LABS: CK-MB VALUE MASS 2.3 NG/ML (<3.6); MB/CK RELATIVE INDEX 7.93 (< OR =4)
[2021-12-23] MEDS ORDERED: FORMOTEROL FUMARATE 20 MCG/2 ML INHALATION SOLUTION (PERFOROMIST) INH SCH (08:00)
[2021-12-23] MEDS: OMEPRAZOLE 20MG CAP PO SCH (09:04)
[2021-12-23] MEDS: predniSONE 20 MG TAB PO SCH (09:04)
[2021-12-23] MEDS: ENOXAPARIN 40MG/0.4ML SYRINGE (J1650 PER 10MG) SC SCH (09:04)
[2021-12-23] MEDS: CARVedilol 6.25 MG TAB PO SCH ×2 (09:04→20:00)
[2021-12-23] MEDS ORDERED: lisinopriL 5 MG TAB PO SCH (16:10)
[2021-12-23] MEDS ORDERED: cefTRIAXone SOD 1 GM in D5W MINI-BAG PLUS 50 ML IV SCH (17:00)
[2021-12-23] MEDS ORDERED: BUDESONIDE 0.5 MG/2 ML INHALATION SUSPENSION INH SCH (20:00)
[2021-12-23] MEDS ORDERED: IPRATROPIUM 0.5MG/ALBUTEROL 2.5MG INH SOL UD 3ML (DUONEB) NEB SCH ×2 (20:00→21:00)
[2021-12-23] MEDS: guaiFENesin ER 600 MG TAB PO SCH (20:01)
[2021-12-23] MEDS: FORMOTEROL FUMARATE 20 MCG/2 ML INHALATION SOLUTION (PERFOROMIST) INH SCH (20:12)
[2021-12-23] MEDS: BUDESONIDE 0.5 MG/2 ML INHALATION SUSPENSION INH SCH (20:12)
[2021-12-24] VITALS: BP 144/67
[2021-12-24 04:00] VITALS: BP 157/70
[2021-12-24] MEDS: DOXYCYCLINE HYCLATE 100 MG in D5W MINI-BAG PLUS 100 ML IV SCH (05:38)
[2021-12-24] MEDS: FORMOTEROL FUMARATE 20 MCG/2 ML INHALATION SOLUTION (PERFOROMIST) INH SCH ×2 (07:45→20:03)
[2021-12-24 08:01] LABS: HEMATOCRIT 41.4 % (36.0-47.0); HEMOGLOBIN 13.2 g/dl (12.0-15.5); MEAN CORPUSCULAR HEMOGLOBIN 30.3 pg (27.0-33.0); MEAN CORPUSCULAR HGB CONC 31.9 g/dl (32.0-36.5); MEAN CORPUSCULAR VOLUME 95.2 fl (80.0-96.0); PLATELET COUNT, AUTOMATED 325 10^3/uL (150-450); RED BLOOD COUNT 4.35 10^6/uL (4.00-5.40); WHITE BLOOD COUNT 17.9 10^3/uL (4.0-10.0)
[2021-12-24 08:23] LABS: ALBUMIN 2.8 GM/DL (3.2-5.2); ALT/SGPT 37 U/L (12-78); BILIRUBIN,TOTAL 0.5 MG/DL (0.2-1.0); BLOOD UREA NITROGEN 28 MG/DL (7-18); CALCIUM LEVEL 9.5 MG/DL (8.8-10.2); CARBON DIOXIDE LEVEL 37 MEQ/L (21-32); CHLORIDE LEVEL 102 MEQ/L (98-107); CREATININE FOR GFR 0.59 MG/DL (0.55-1.30); GLOMERULAR FILTRATION RATE > 60.0 (>39); GLUCOSE, FASTING 121 MG/DL (70-100); SODIUM LEVEL 145 MEQ/L (136-145); TOTAL PROTEIN 5.6 GM/DL (6.4-8.2)
[2021-12-24] MEDS: OMEPRAZOLE 20MG CAP PO SCH (08:31)
[2021-12-24] MEDS: guaiFENesin ER 600 MG TAB PO SCH ×2 (08:31→21:28)
[2021-12-24] MEDS: predniSONE 20 MG TAB PO SCH (08:31)
[2021-12-24] MEDS: ENOXAPARIN 40MG/0.4ML SYRINGE (J1650 PER 10MG) SC SCH (08:31)
[2021-12-24 08:32] VITALS: BP 161/71
[2021-12-24] MEDS: CARVedilol 6.25 MG TAB PO SCH ×2 (08:32→21:27)
[2021-12-24] MEDS: BUDESONIDE 0.5 MG/2 ML INHALATION SUSPENSION INH SCH ×2 (09:00→20:03)
[2021-12-24 14:00] VITALS: BP 158/70
[2021-12-24] MEDS: lisinopriL 5 MG TAB PO SCH (18:36)
[2021-12-24 20:00] VITALS: BP 162/62
[2021-12-24] MEDS: methylPREDNISolone 125MG 2ML VIAL IV SCH (21:28)
[2021-12-25 04:00] VITALS: BP 162/94
[2021-12-25] MEDS: FORMOTEROL FUMARATE 20 MCG/2 ML INHALATION SOLUTION (PERFOROMIST) INH SCH (07:48)
[2021-12-25] MEDS: BUDESONIDE 0.5 MG/2 ML INHALATION SUSPENSION INH SCH (07:48)
[2021-12-25 08:24] LABS: HEMATOCRIT 43.7 % (36.0-47.0); HEMOGLOBIN 13.9 g/dl (12.0-15.5); MEAN CORPUSCULAR HGB CONC 31.8 g/dl (32.0-36.5); MEAN CORPUSCULAR VOLUME 94.2 fl (80.0-96.0); PLATELET COUNT, AUTOMATED 391 10^3/uL (150-450); RED BLOOD COUNT 4.64 10^6/uL (4.00-5.40); WHITE BLOOD COUNT 15.6 10^3/uL (4.0-10.0)
[2021-12-25 08:27] VITALS: BP 146/67
[2021-12-25] MEDS: CARVedilol 6.25 MG TAB PO SCH (08:27)
[2021-12-25] MEDS: OMEPRAZOLE 20MG CAP PO SCH (08:27)
[2021-12-25] MEDS: guaiFENesin ER 600 MG TAB PO SCH (08:27)
[2021-12-25] MEDS: lisinopriL 5 MG TAB PO SCH (08:27)
[2021-12-25] MEDS: methylPREDNISolone 125MG 2ML VIAL IV SCH (08:27)
[2021-12-25] MEDS: ENOXAPARIN 40MG/0.4ML SYRINGE (J1650 PER 10MG) SC SCH (08:28)
[2021-12-25] MEDS ORDERED: AMLO1TAB25 PO (08:52)
[2021-12-25] MEDS ORDERED: LISI5TAB11 PO (08:52)
[2021-12-25] MEDS ORDERED: MUCI600T31 PO (08:52)
[2021-12-25] MEDS ORDERED: PRED20TA PO (08:52)
[2021-12-25 09:18] LABS: ALBUMIN 3.1 GM/DL (3.2-5.2); ALT/SGPT 35 U/L (12-78); BILIRUBIN,TOTAL 0.4 MG/DL (0.2-1.0); BLOOD UREA NITROGEN 30 MG/DL (7-18); CALCIUM LEVEL 9.8 MG/DL (8.8-10.2); CARBON DIOXIDE LEVEL 36 MEQ/L (21-32); CHLORIDE LEVEL 102 MEQ/L (98-107); CREATININE FOR GFR 0.66 MG/DL (0.55-1.30); GLOMERULAR FILTRATION RATE > 60.0 (>39); GLUCOSE, FASTING 184 MG/DL (70-100); POTASSIUM SERUM 5.2 MEQ/L (3.5-5.1); SODIUM LEVEL 144 MEQ/L (136-145); TOTAL PROTEIN 6.3 GM/DL (6.4-8.2)
== END 2021-12-25 13:05 | disposition home or self-care (01) | DRG 178 ==
LOC: M ED 14:44 → M ED INP 19:39 → M 4MAIN 21:56
PROVIDERS: ADMIT Family Medicine; ATTEND Internal Medicine
DX: U07.1 COVID-19 (principal); J96.11 Chronic respiratory failure with hypoxia; I16.1 Hypertensive emergency; J44.1 Chronic obstructive pulmonary disease with (acute) exacerbation; I24.8 Other forms of acute ischemic heart disease; I10 Essential (primary) hypertension; K21.9 Gastro-esophageal reflux disease without esophagitis; L40.9 Psoriasis, unspecified; H91.93 Unspecified hearing loss, bilateral; Z87.891 Personal history of nicotine dependence; Z79.899 Other long term (current) drug therapy; Z99.81 Dependence on supplemental oxygen

== ENCOUNTER 2022-02-01 08:03 | Emergency (ER) | payer MEDICARE, MEDICAID ==
[~2022-02-01] VITALS: Ht 162.6 cm; Wt 54.5 kg
[~2022-02-01 08:03] MED LIST changes: +AMLO1TAB25 PO; +ASPI81CH33 PO; +LISI5TAB11 PO; +MUCI600T31 PO; +OMEP40CA5 PO; +PERF20NE2 INH; +PRED20TA PO; +PULM0.5S INH
[2022-02-01] MEDS ORDERED: CARV12.5 (08:41)
[2022-02-01 08:58] LABS: BASO # 0.1 10^3/uL (0.0-0.2); BASO % 0.5 % (0.0-1.0); EOS # 0.2 10^3/uL (0.0-0.5); EOS % 1.8 % (0.0-3.0); HEMATOCRIT 39.7 % (36.0-47.0); HEMOGLOBIN 12.1 g/dl (12.0-15.5); LYMPH # 1.2 10^3/uL (1.5-5.0); LYMPH % 11.5 % (24.0-44.0); MEAN CORPUSCULAR HGB CONC 30.5 g/dl (32.0-36.5); MEAN CORPUSCULAR VOLUME 98.5 fl (80.0-96.0); MONO # 0.9 10^3/uL (0.0-0.8); MONO % 8.4 % (2.0-8.0); NEUTROPHILS # 8.2 10^3/uL (1.5-8.5); NEUTROPHILS % 76.4 % (36.0-66.0); PLATELET COUNT, AUTOMATED 209 10^3/uL (150-450); RED BLOOD COUNT 4.03 10^6/uL (4.00-5.40); WHITE BLOOD COUNT 10.7 10^3/uL (4.0-10.0)
[2022-02-01] MEDS ORDERED: dexameTHASONE 20MG/5ML VIAL (J1100 PER 1MG) IV ONE (09:15)
[2022-02-01] MEDS: COMBIVENT RESPIMAT 100-20MCG INHALER 4GM INH SCH ×3 (09:20→09:55)
[2022-02-01 09:28] LABS: ALBUMIN 3.2 GM/DL (3.2-5.2); ALT/SGPT 20 U/L (12-78); BILIRUBIN,DIRECT 0.1 MG/DL (0.0-0.2); BILIRUBIN,TOTAL 0.5 MG/DL (0.2-1.0); BLOOD UREA NITROGEN 19 MG/DL (7-18); CALCIUM LEVEL 9.5 MG/DL (8.8-10.2); CARBON DIOXIDE LEVEL 39 MEQ/L (21-32); CHLORIDE LEVEL 103 MEQ/L (98-107); CK-MB VALUE MASS < 1.0 NG/ML (<3.6); CPK CREATINE PHOSPHOKINASE 15 U/L (26-192); CREATININE FOR GFR 0.59 MG/DL (0.55-1.30); GLOMERULAR FILTRATION RATE > 60.0 (>39); GLUCOSE, FASTING 141 MG/DL (70-100); MB/CK RELATIVE INDEX 6.67 (< OR =4); POTASSIUM SERUM 4.2 MEQ/L (3.5-5.1); SODIUM LEVEL 146 MEQ/L (136-145); TOTAL PROTEIN 6.3 GM/DL (6.4-8.2)
[2022-02-01] MEDS: IPRATROPIUM 0.5MG/ALBUTEROL 2.5MG INH SOL UD 3ML (DUONEB) NEB SCH ×2 (11:38→11:39)
[2022-02-01 12:30] VITALS: BP 149/70
[2022-02-01] MEDS ORDERED: DOXY-443 PO (12:31)
[2022-02-01] MEDS ORDERED: PRED10TA2 PO (12:31)
== END 2022-02-01 13:05 | disposition home or self-care (01) ==
LOC: M ED 08:03 → EDBD 08:03 → M ED 13:05
DX: J44.1 Chronic obstructive pulmonary disease with (acute) exacerbation (principal); R06.03 Acute respiratory distress; I10 Essential (primary) hypertension; K21.9 Gastro-esophageal reflux disease without esophagitis; J45.909 Unspecified asthma, uncomplicated; Z99.81 Dependence on supplemental oxygen; Z87.891 Personal history of nicotine dependence; Z80.1 Family history of malignant neoplasm of trachea, bronchus and lung; Z79.899 Other long term (current) drug therapy; Z79.51 Long term (current) use of inhaled steroids
CPT/HCPCS: 71045; 80048; 80076; 82550; 82553; 84484; 85025; 87486; 87581; 87633; 87798; 93005; 93041; 94640; 94760; 96374; 99285; J1100

== ENCOUNTER 2022-03-07 08:09 | Emergency (ER) | payer MEDICARE, MEDICAID ==
[~2022-03-07] VITALS: Ht 165.1 cm; Wt 53.2 kg
[~2022-03-07 08:09] MED LIST changes: +CARV12.5; +DOXY-443 PO
[2022-03-07] MEDS ORDERED: dexameTHASONE 20MG/5ML VIAL (J1100 PER 1MG) IV ONE (08:25)
[2022-03-07 09:03] LABS: BASO # 0.1 10^3/uL (0.0-0.2); BASO % 0.6 % (0.0-1.0); EOS # 0.3 10^3/uL (0.0-0.5); EOS % 2.8 % (0.0-3.0); HEMATOCRIT 40.4 % (36.0-47.0); HEMOGLOBIN 12.1 g/dl (12.0-15.5); LYMPH # 1.2 10^3/uL (1.5-5.0); LYMPH % 13.7 % (24.0-44.0); MEAN CORPUSCULAR HEMOGLOBIN 29.4 pg (27.0-33.0); MEAN CORPUSCULAR VOLUME 98.3 fl (80.0-96.0); MONO # 0.6 10^3/uL (0.0-0.8); MONO % 6.6 % (2.0-8.0); NEUTROPHILS # 6.8 10^3/uL (1.5-8.5); NEUTROPHILS % 75.9 % (36.0-66.0); PLATELET COUNT, AUTOMATED 303 10^3/uL (150-450); RED BLOOD COUNT 4.11 10^6/uL (4.00-5.40); VENOUS BASE EXCESS 11.2 (-2.0-2.0); VENOUS HCO3 40.6 MEQ/L (23.0-27.0); VENOUS O2 SATURATION 59.3 % (60.0-80.0); VENOUS PARTIAL PRESSURE CO2 80.2 mmHg (38.0-50.0); VENOUS PARTIAL PRESSURE O2 32.9 mmHg (30.0-50.0); VENOUS PH 7.322 UNITS (7.330-7.430); VENOUS STANDARD HCO3 33.9 MEQ/L
[2022-03-07 09:11] VITALS: O2SAT 100
[2022-03-07] MEDS: COMBIVENT RESPIMAT 100-20MCG INHALER 4GM INH SCH ×3 (09:11→09:43)
[2022-03-07 09:35] LABS: ALBUMIN 3.2 GM/DL (3.2-5.2); ALT/SGPT 16 U/L (12-78); BILIRUBIN,DIRECT < 0.1 MG/DL (0.0-0.2); BILIRUBIN,TOTAL 0.3 MG/DL (0.2-1.0); BLOOD UREA NITROGEN 18 MG/DL (7-18); CALCIUM LEVEL 9.6 MG/DL (8.8-10.2); CARBON DIOXIDE LEVEL 40 MEQ/L (21-32); CHLORIDE LEVEL 103 MEQ/L (98-107); CPK CREATINE PHOSPHOKINASE 21 U/L (26-192); CREATININE FOR GFR 0.69 MG/DL (0.55-1.30); GLOMERULAR FILTRATION RATE > 60.0 (>39); GLUCOSE, FASTING 147 MG/DL (70-100); MB/CK RELATIVE INDEX 4.76 (< OR =4); NT-PRO BNP 230 PG/ML (<125); POTASSIUM SERUM 4.1 MEQ/L (3.5-5.1); SODIUM LEVEL 144 MEQ/L (136-145); TOTAL PROTEIN 6.8 GM/DL (6.4-8.2)
[2022-03-07] MEDS ORDERED: PRED10TA2 PO (12:28)
[2022-03-07 13:08] VITALS: BP 145/61
== END 2022-03-07 13:18 | disposition home or self-care (01) ==
LOC: M ED 08:09
DX: J44.1 Chronic obstructive pulmonary disease with (acute) exacerbation (principal); I50.9 Heart failure, unspecified; I11.0 Hypertensive heart disease with heart failure; K21.9 Gastro-esophageal reflux disease without esophagitis; M51.9 Unspecified thoracic, thoracolumbar and lumbosacral intervertebral disc disorder; L40.9 Psoriasis, unspecified; Z87.891 Personal history of nicotine dependence; Z79.899 Other long term (current) drug therapy; Z79.2 Long term (current) use of antibiotics; Z79.51 Long term (current) use of inhaled steroids
CPT/HCPCS: 71045; 80048; 80076; 82550; 82553; 82803; 83605; 83880; 84145; 84484; 85025; 87040; 87486; 87581; 87633; 87798; 93005; 93041; 94640; 94760; 96374; 99285; J1100

== ENCOUNTER 2022-04-02 10:28 | Inpatient (IN) | payer MEDICARE, MEDICAID ==
[~2022-04-02] VITALS: Ht 165.1 cm; Wt 51.2 kg
[~2022-04-02 10:28] MED LIST changes: -CARV12.5
[2022-04-02] MEDS ORDERED: AMLO1TAB24 PO (10:41)
[2022-04-02] MEDS ORDERED: LISI40TA4 PO (10:41)
[2022-04-02] MEDS ORDERED: ALBUTEROL SULFATE 2.5 MG/0.5 ML INH NEB SOLN INH ONE (11:25)
[2022-04-02] MEDS ORDERED: methylPREDNISolone 125MG 2ML VIAL IV ONE (11:25)
[2022-04-02] MEDS ORDERED: IPRATROPIUM 0.5MG/ALBUTEROL 2.5MG INH SOL UD 3ML (DUONEB) NEB ONE (11:25)
[2022-04-02 12:16] LABS: BASO % 0.4 % (0.0-1.0); EOS # 0.2 10^3/uL (0.0-0.5); EOS % 2.6 % (0.0-3.0); HEMATOCRIT 42.3 % (36.0-47.0); HEMOGLOBIN 12.3 g/dl (12.0-15.5); LYMPH # 1.1 10^3/uL (1.5-5.0); LYMPH % 12.3 % (24.0-44.0); MEAN CORPUSCULAR HEMOGLOBIN 29.2 pg (27.0-33.0); MEAN CORPUSCULAR HGB CONC 29.1 g/dl (32.0-36.5); MEAN CORPUSCULAR VOLUME 100.5 fl (80.0-96.0); MONO # 0.6 10^3/uL (0.0-0.8); MONO % 6.7 % (2.0-8.0); NEUTROPHILS # 7.2 10^3/uL (1.5-8.5); NEUTROPHILS % 77.7 % (36.0-66.0); PLATELET COUNT, AUTOMATED 214 10^3/uL (150-450); RED BLOOD COUNT 4.21 10^6/uL (4.00-5.40); WHITE BLOOD COUNT 9.3 10^3/uL (4.0-10.0)
[2022-04-02 12:46] LABS: RSV AMPLIFICATION NEGATIVE (NEGATIVE)
[2022-04-02 12:59] LABS: ALBUMIN 3.4 GM/DL (3.2-5.2); BILIRUBIN,DIRECT 0.2 MG/DL (0.0-0.2); BILIRUBIN,TOTAL 0.3 MG/DL (0.2-1.0); THYROID STIMULATING HORMONE 1.33 uIU/ML (0.358-3.740); THYROXINE (T4) 6.2 UG/DL (4.5-12.0); TOTAL PROTEIN 6.3 GM/DL (6.4-8.2)
[2022-04-02] MEDS ORDERED: HOME MED LIST COMPLETE! XX SCH (14:15)
[2022-04-02] MEDS ORDERED: IPRATROPIUM 0.5MG/ALBUTEROL 2.5MG INH SOL UD 3ML (DUONEB) NEB PRN (15:00)
[2022-04-02] MEDS ORDERED: ISOVUE-370 76% 100ML VIAL As Ordered ONE (15:17)
[2022-04-02] MEDS ORDERED: AZITHROMYCIN 250MG TABLET PO ONE (15:30)
[2022-04-02 16:19] LABS: CK-MB VALUE MASS < 1.0 NG/ML (<3.6); CPK CREATINE PHOSPHOKINASE 18 U/L (26-192); MB/CK RELATIVE INDEX 5.56 (< OR =4)
[2022-04-02 17:10] VITALS: O2SAT 99
[2022-04-02] MEDS: IPRATROPIUM 0.5MG/ALBUTEROL 2.5MG INH SOL UD 3ML (DUONEB) NEB SCH ×2 (17:15→20:00)
[2022-04-02 18:40] VITALS: BP 140/63
[2022-04-02] MEDS: methylPREDNISolone 125MG 2ML VIAL IV SCH ×2 (19:00→23:33)
[2022-04-02] MEDS: BUDESONIDE 0.5 MG/2 ML INHALATION SUSPENSION INH SCH (19:16)
[2022-04-02] MEDS: FORMOTEROL FUMARATE 20 MCG/2 ML INHALATION SOLUTION (PERFOROMIST) INH SCH (19:16)
[2022-04-02 19:49] VITALS: BP 151/67
[2022-04-02] MEDS: CARVedilol 12.5 MG TAB PO SCH (20:08)
[2022-04-03] VITALS: BP 121/60
[2022-04-03] MEDS: IPRATROPIUM 0.5MG/ALBUTEROL 2.5MG INH SOL UD 3ML (DUONEB) NEB SCH ×7 (00:10→23:44)
[2022-04-03 04:00] VITALS: BP 133/63
[2022-04-03 05:04] LABS: BASO % 0.1 % (0.0-1.0); HEMATOCRIT 36.2 % (36.0-47.0); HEMOGLOBIN 11.2 g/dl (12.0-15.5); LYMPH # 0.9 10^3/uL (1.5-5.0); LYMPH % 6.3 % (24.0-44.0); MEAN CORPUSCULAR HEMOGLOBIN 29.5 pg (27.0-33.0); MEAN CORPUSCULAR HGB CONC 30.9 g/dl (32.0-36.5); MEAN CORPUSCULAR VOLUME 95.3 fl (80.0-96.0); MONO # 0.1 10^3/uL (0.0-0.8); MONO % 0.9 % (2.0-8.0); NEUTROPHILS # 12.7 10^3/uL (1.5-8.5); NEUTROPHILS % 92.2 % (36.0-66.0); PLATELET COUNT, AUTOMATED 203 10^3/uL (150-450); WHITE BLOOD COUNT 13.8 10^3/uL (4.0-10.0)
[2022-04-03 05:45] LABS: BLOOD UREA NITROGEN 26 MG/DL (7-18); CARBON DIOXIDE LEVEL 37 MEQ/L (21-32); CHLORIDE LEVEL 99 MEQ/L (98-107); CREATININE FOR GFR 0.66 MG/DL (0.55-1.30); GLOMERULAR FILTRATION RATE > 60.0 (>39); GLUCOSE, FASTING 217 MG/DL (70-100); POTASSIUM SERUM 4.2 MEQ/L (3.5-5.1); SODIUM LEVEL 136 MEQ/L (136-145)
[2022-04-03] MEDS: methylPREDNISolone 125MG 2ML VIAL IV SCH ×4 (06:17→23:27)
[2022-04-03 07:57] VITALS: BP 134/69
[2022-04-03] MEDS: lisinopriL 40MG TAB PO SCH (08:26)
[2022-04-03] MEDS: AZITHROMYCIN 250MG TABLET PO SCH (08:26)
[2022-04-03] MEDS: amLODIPine 5 MG TAB PO SCH (08:26)
[2022-04-03] MEDS: ENOXAPARIN 40MG/0.4ML SYRINGE (J1650 PER 10MG) SC SCH (08:27)
[2022-04-03] MEDS: OMEPRAZOLE 20MG CAP PO SCH (08:27)
[2022-04-03] MEDS: CARVedilol 12.5 MG TAB PO SCH ×2 (08:27→20:14)
[2022-04-03 09:15] LABS: ABG BASE EXCESS 6.7 (-2.0-2.0); ABG HCO3 32.3 MEQ/L (22.0-26.0); ABG O2 SATURATION 93.8 % (95.0-99.0); ABG PARTIAL PRESSURE O2 68.1 mmHg (75.0-100.0); ABG STANDARD HCO3 30.5 MEQ/L (22.0-26.0); ABG TOTAL CO2 33.8 MEQ/L (23.0-31.0); ABG pH (ARTERIAL) 7.428 UNITS (7.350-7.450)
[2022-04-03] MEDS ORDERED: NITROGLYCERIN 0.4 MG SUBL TABLET SL STA (09:31)
[2022-04-03] MEDS: BUDESONIDE 0.5 MG/2 ML INHALATION SUSPENSION INH SCH ×2 (09:32→19:32)
[2022-04-03] MEDS: FORMOTEROL FUMARATE 20 MCG/2 ML INHALATION SOLUTION (PERFOROMIST) INH SCH ×2 (09:32→19:32)
[2022-04-03] MEDS ORDERED: GI COCKTAIL 50ML BTL(HYOSCYAMINE/MAALOX/LIDOCAINE VISCOUS)(1:3:1) PO PRN (09:35)
[2022-04-03] MEDS ORDERED: NITROGLYCERIN 0.4 MG SUBL TABLET SL PRN (09:35)
[2022-04-03] MEDS ORDERED: ASPIRIN 81 MG CHEW TABLET PO ONE (09:35)
[2022-04-03 10:07] LABS: CK-MB VALUE MASS < 1.0 NG/ML (<3.6); CPK CREATINE PHOSPHOKINASE 25 U/L (26-192)
[2022-04-03] MEDS ORDERED: GI COCKTAIL 50ML BTL(HYOSCYAMINE/MAALOX/LIDOCAINE VISCOUS)(1:3:1) PO ONE (11:00)
[2022-04-03 11:10] VITALS: BP 112/54
[2022-04-03 13:05] LABS: CK-MB VALUE MASS < 1.0 NG/ML (<3.6); CPK CREATINE PHOSPHOKINASE 17 U/L (26-192); MB/CK RELATIVE INDEX 5.88 (< OR =4)
[2022-04-03 14:00] VITALS: BP 117/55
[2022-04-03 18:35] LABS: CK-MB VALUE MASS < 1.0 NG/ML (<3.6); CPK CREATINE PHOSPHOKINASE 22 U/L (26-192); MB/CK RELATIVE INDEX 4.55 (< OR =4)
[2022-04-03 21:00] VITALS: BP 123/57
[2022-04-04] MEDS: IPRATROPIUM 0.5MG/ALBUTEROL 2.5MG INH SOL UD 3ML (DUONEB) NEB SCH ×5 (03:50→20:00)
[2022-04-04] MEDS: methylPREDNISolone 125MG 2ML VIAL IV SCH (05:05)
[2022-04-04 06:00] VITALS: BP 138/69
[2022-04-04 06:00] LABS: BASO % 0.1 % (0.0-1.0); HEMOGLOBIN 11.6 g/dl (12.0-15.5); LYMPH # 0.9 10^3/uL (1.5-5.0); MEAN CORPUSCULAR HEMOGLOBIN 28.9 pg (27.0-33.0); MEAN CORPUSCULAR HGB CONC 30.5 g/dl (32.0-36.5); MEAN CORPUSCULAR VOLUME 94.8 fl (80.0-96.0); MONO # 0.5 10^3/uL (0.0-0.8); NEUTROPHILS # 21.2 10^3/uL (1.5-8.5); NEUTROPHILS % 92.4 % (36.0-66.0); PLATELET COUNT, AUTOMATED 216 10^3/uL (150-450); RED BLOOD COUNT 4.01 10^6/uL (4.00-5.40); WHITE BLOOD COUNT 22.9 10^3/uL (4.0-10.0)
[2022-04-04 06:35] LABS: BLOOD UREA NITROGEN 32 MG/DL (7-18); CALCIUM LEVEL 9.4 MG/DL (8.8-10.2); CARBON DIOXIDE LEVEL 38 MEQ/L (21-32); CHLORIDE LEVEL 100 MEQ/L (98-107); CHOLESTEROL LEVEL 189 MG/DL (<200); CREATININE FOR GFR 0.74 MG/DL (0.55-1.30); GLOMERULAR FILTRATION RATE > 60.0 (>39); GLUCOSE, FASTING 211 MG/DL (70-100); HDL CHOLESTEROL 63 MG/DL (>40); LDL CHOLESTEROL 110 MG/DL (<100); NON-HDL-C 126 MG/DL; POTASSIUM SERUM 4.3 MEQ/L (3.5-5.1); SODIUM LEVEL 142 MEQ/L (136-145); TRIGLYCERIDES LEVEL 79 MG/DL (<150)
[2022-04-04] MEDS: BUDESONIDE 0.5 MG/2 ML INHALATION SUSPENSION INH SCH ×2 (07:19→20:14)
[2022-04-04] MEDS: FORMOTEROL FUMARATE 20 MCG/2 ML INHALATION SOLUTION (PERFOROMIST) INH SCH ×2 (07:19→20:00)
[2022-04-04] MEDS: amLODIPine 5 MG TAB PO SCH (07:42)
[2022-04-04] MEDS: CARVedilol 12.5 MG TAB PO SCH ×2 (07:42→20:08)
[2022-04-04] MEDS: OMEPRAZOLE 20MG CAP PO SCH (07:42)
[2022-04-04] MEDS: AZITHROMYCIN 250MG TABLET PO SCH (07:43)
[2022-04-04] MEDS: ENOXAPARIN 40MG/0.4ML SYRINGE (J1650 PER 10MG) SC SCH (07:43)
[2022-04-04] MEDS: lisinopriL 40MG TAB PO SCH (07:43)
[2022-04-04] MEDS: ASPIRIN 81 MG CHEW TABLET PO SCH (07:43)
[2022-04-04 07:45] VITALS: BP 137/69
[2022-04-04 14:00] VITALS: BP 133/86
[2022-04-04] MEDS ORDERED: methylPREDNISolone 40MG 1ML VIAL IV SCH (18:00)
[2022-04-04] MEDS: predniSONE 20 MG TAB PO SCH (20:08)
[2022-04-04 20:49] VITALS: BP 131/64
[2022-04-05] MEDS: IPRATROPIUM 0.5MG/ALBUTEROL 2.5MG INH SOL UD 3ML (DUONEB) NEB SCH ×4 (04:00→11:13)
[2022-04-05 04:04] VITALS: BP 136/68
[2022-04-05 06:35] LABS: BASO % 0.1 % (0.0-1.0); HEMOGLOBIN 11.1 g/dl (12.0-15.5); LYMPH # 0.7 10^3/uL (1.5-5.0); LYMPH % 3.5 % (24.0-44.0); MEAN CORPUSCULAR HEMOGLOBIN 29.7 pg (27.0-33.0); MEAN CORPUSCULAR HGB CONC 30.8 g/dl (32.0-36.5); MEAN CORPUSCULAR VOLUME 96.3 fl (80.0-96.0); MONO # 0.6 10^3/uL (0.0-0.8); MONO % 2.8 % (2.0-8.0); NEUTROPHILS # 19.4 10^3/uL (1.5-8.5); NEUTROPHILS % 92.3 % (36.0-66.0); PLATELET COUNT, AUTOMATED 200 10^3/uL (150-450); RED BLOOD COUNT 3.74 10^6/uL (4.00-5.40)
[2022-04-05] MEDS: BUDESONIDE 0.5 MG/2 ML INHALATION SUSPENSION INH SCH (07:10)
[2022-04-05] MEDS: FORMOTEROL FUMARATE 20 MCG/2 ML INHALATION SOLUTION (PERFOROMIST) INH SCH (07:10)
[2022-04-05] MEDS ORDERED: PRED10TA2 PO (07:11)
[2022-04-05] MEDS ORDERED: DOXY-350 PO (07:11)
[2022-04-05 07:14] LABS: BLOOD UREA NITROGEN 38 MG/DL (7-18); CARBON DIOXIDE LEVEL 35 MEQ/L (21-32); CHLORIDE LEVEL 102 MEQ/L (98-107); CREATININE FOR GFR 0.66 MG/DL (0.55-1.30); GLOMERULAR FILTRATION RATE > 60.0 (>39); GLUCOSE, FASTING 209 MG/DL (70-100); POTASSIUM SERUM 4.3 MEQ/L (3.5-5.1); SODIUM LEVEL 140 MEQ/L (136-145)
[2022-04-05] MEDS: predniSONE 20 MG TAB PO SCH (08:07)
[2022-04-05] MEDS: ASPIRIN 81 MG CHEW TABLET PO SCH (08:07)
[2022-04-05] MEDS: OMEPRAZOLE 20MG CAP PO SCH (08:07)
[2022-04-05] MEDS: AZITHROMYCIN 250MG TABLET PO SCH (08:08)
[2022-04-05 08:10] VITALS: BP 135/65
[2022-04-05] MEDS: CARVedilol 12.5 MG TAB PO SCH (08:10)
[2022-04-05] MEDS: lisinopriL 40MG TAB PO SCH (08:10)
[2022-04-05] MEDS: amLODIPine 5 MG TAB PO SCH (08:10)
[2022-04-05] MEDS: ENOXAPARIN 40MG/0.4ML SYRINGE (J1650 PER 10MG) SC SCH (08:11)
[2022-04-05] MEDS ORDERED: VENTAER INH (10:07)
== END 2022-04-05 11:40 | disposition home health service (06) | DRG 189 ==
LOC: M ED 10:28 → M ED INP 14:57 → ENRESERV 17:02 → M PCU 18:30 → M MS5PR 04-03 10:57
PROVIDERS: ADMIT General Practice; ATTEND General Practice
DX: J96.21 Acute and chronic respiratory failure with hypoxia (principal); J44.1 Chronic obstructive pulmonary disease with (acute) exacerbation; J96.22 Acute and chronic respiratory failure with hypercapnia; Z99.81 Dependence on supplemental oxygen; I10 Essential (primary) hypertension; K21.9 Gastro-esophageal reflux disease without esophagitis; L40.9 Psoriasis, unspecified; I27.20 Pulmonary hypertension, unspecified; Z90.49 Acquired absence of other specified parts of digestive tract; Z87.891 Personal history of nicotine dependence; Z79.899 Other long term (current) drug therapy; Z20.822 Contact with and (suspected) exposure to COVID-19; Z86.16 Personal history of COVID-19

== ENCOUNTER 2022-06-22 08:56 | Inpatient (IN) | payer MEDICARE, MEDICAID ==
[~2022-06-22] VITALS: Ht 165.1 cm; Wt 54.2 kg
[~2022-06-22 08:56] MED LIST changes: +AMLO1TAB24 PO; +DOXY-444 PO; +VENTAER INH
[2022-06-22 10:18] LABS: BASO % 0.3 % (0.0-1.0); EOS # 0.3 10^3/uL (0.0-0.5); EOS % 2.7 % (0.0-3.0); HEMATOCRIT 41.5 % (36.0-47.0); LYMPH # 1.3 10^3/uL (1.5-5.0); LYMPH % 12.1 % (24.0-44.0); MEAN CORPUSCULAR HEMOGLOBIN 29.3 pg (27.0-33.0); MEAN CORPUSCULAR HGB CONC 28.9 g/dl (32.0-36.5); MEAN CORPUSCULAR VOLUME 101.5 fl (80.0-96.0); MONO # 0.7 10^3/uL (0.0-0.8); MONO % 6.7 % (2.0-8.0); NEUTROPHILS # 8.2 10^3/uL (1.5-8.5); NEUTROPHILS % 77.8 % (36.0-66.0); PLATELET COUNT, AUTOMATED 193 10^3/uL (150-450); RED BLOOD COUNT 4.09 10^6/uL (4.00-5.40); WHITE BLOOD COUNT 10.6 10^3/uL (4.0-10.0)
[2022-06-22] MEDS ORDERED: dexameTHASONE 20MG/5ML VIAL (J1100 PER 1MG) IV ONE (10:35)
[2022-06-22] MEDS ORDERED: IPRATROPIUM 0.5MG/ALBUTEROL 2.5MG INH SOL UD 3ML (DUONEB) As Ordered ONE (10:43)
[2022-06-22] MEDS ORDERED: IPRATROPIUM 0.5MG/ALBUTEROL 2.5MG INH SOL UD 3ML (DUONEB) NEB SCH (11:00)
[2022-06-22 11:09] LABS: ALBUMIN 3.5 GM/DL (3.2-5.2); ALT/SGPT 20 U/L (12-78); BILIRUBIN,DIRECT < 0.1 MG/DL (0.0-0.2); BILIRUBIN,TOTAL 0.5 MG/DL (0.2-1.0); BLOOD UREA NITROGEN 23 MG/DL (7-18); CALCIUM LEVEL 9.2 MG/DL (8.8-10.2); CARBON DIOXIDE LEVEL 42 MEQ/L (21-32); CHLORIDE LEVEL 100 MEQ/L (98-107); CREATININE FOR GFR 0.52 MG/DL (0.55-1.30); GLOMERULAR FILTRATION RATE > 60.0 (>39); GLUCOSE, FASTING 135 MG/DL (70-100); POTASSIUM SERUM 5.1 MEQ/L (3.5-5.1); SODIUM LEVEL 142 MEQ/L (136-145); TOTAL PROTEIN 6.5 GM/DL (6.4-8.2)
[2022-06-22] MEDS ORDERED: VENTAER INH (13:00)
[2022-06-22] MEDS ORDERED: HOME MED LIST COMPLETE! XX SCH (13:05)
[2022-06-22] MEDS ORDERED: ACETAMINOPHEN TAB 650MG DOSE (2X325MG) PO PRN (17:05)
[2022-06-22] MEDS: methylPREDNISolone 40MG 1ML VIAL IV SCH ×2 (18:08→22:30)
[2022-06-22 18:40] LABS: VENOUS BASE EXCESS 14.4 (-2.0-2.0); VENOUS HCO3 40.4 MEQ/L (23.0-27.0); VENOUS O2 SATURATION 98.9 % (60.0-80.0); VENOUS PARTIAL PRESSURE CO2 56.2 mmHg (38.0-50.0); VENOUS PARTIAL PRESSURE O2 132.6 mmHg (30.0-50.0); VENOUS PH 7.475 UNITS (7.330-7.430); VENOUS STANDARD HCO3 38.3 MEQ/L; VENOUS TOTAL CO2 42.2 MEQ/L (24.0-28.0)
[2022-06-22 19:25] LABS: INR 0.92; PROTHROMBIN TIME 12.6 SECONDS (12.5-14.5)
[2022-06-22 19:26] LABS: PARTIAL THROMBOPLASTIN TIME 31.1 SECONDS (24.8-34.2)
[2022-06-22] MEDS: DOCUSATE SODIUM 100MG CAPSULE PO SCH (21:00)
[2022-06-22] MEDS: IPRATROPIUM 0.5MG/ALBUTEROL 2.5MG INH SOL UD 3ML (DUONEB) NEB SCH ×2 (21:22→23:52)
[2022-06-22 22:00] VITALS: BP 144/64
[2022-06-22] MEDS: CARVedilol 12.5 MG TAB PO SCH (22:29)
[2022-06-22] MEDS: RIVAROXABAN 10MG TAB (XARELTO) PO SCH (22:29)
[2022-06-22] MEDS: AZITHROMYCIN 250MG TABLET PO SCH (22:30)
[2022-06-22] MEDS: OMEPRAZOLE 20MG CAP PO SCH (22:30)
[2022-06-23] VITALS (7 sets, daily range): BP systolic 98–143; BP diastolic 53–75
[2022-06-23] MEDS: IPRATROPIUM 0.5MG/ALBUTEROL 2.5MG INH SOL UD 3ML (DUONEB) NEB SCH ×6 (03:46→23:29)
[2022-06-23] MEDS: methylPREDNISolone 40MG 1ML VIAL IV SCH ×3 (05:05→21:15)
[2022-06-23] MEDS: DOCUSATE SODIUM 100MG CAPSULE PO SCH ×2 (08:30→20:10)
[2022-06-23] MEDS: amLODIPine 5 MG TAB PO SCH (08:30)
[2022-06-23] MEDS: lisinopriL 40MG TAB PO SCH (08:30)
[2022-06-23] MEDS: OMEPRAZOLE 20MG CAP PO SCH ×2 (08:30→20:10)
[2022-06-23] MEDS: CARVedilol 12.5 MG TAB PO SCH ×2 (08:31→20:10)
[2022-06-23] MEDS ORDERED: METOCLOPRAMIDE INJ 10MG/2ML VIAL (J2765 PER 1) IV ONE (09:30)
[2022-06-23 09:31] LABS: ABG BASE EXCESS 11.7 (-2.0-2.0); ABG HCO3 37.7 MEQ/L (22.0-26.0); ABG O2 SATURATION 94.1 % (95.0-99.0); ABG PARTIAL PRESSURE CO2 56.2 mmHg (35.0-45.0); ABG PARTIAL PRESSURE O2 66.5 mmHg (75.0-100.0); ABG STANDARD HCO3 35.4 MEQ/L (22.0-26.0); ABG TOTAL CO2 39.5 MEQ/L (23.0-31.0); ABG pH (ARTERIAL) 7.445 UNITS (7.350-7.450)
[2022-06-23] MEDS: RIVAROXABAN 10MG TAB (XARELTO) PO SCH (17:21)
[2022-06-23] MEDS: AZITHROMYCIN 250MG TABLET PO SCH (20:10)
[2022-06-24] MEDS: IPRATROPIUM 0.5MG/ALBUTEROL 2.5MG INH SOL UD 3ML (DUONEB) NEB SCH ×2 (03:21→07:23)
[2022-06-24 05:18] VITALS: BP 125/61
[2022-06-24] MEDS: methylPREDNISolone 40MG 1ML VIAL IV SCH (05:44)
[2022-06-24] MEDS ORDERED: AZIT-12 PO (07:37)
[2022-06-24] MEDS ORDERED: PRED10TA2 PO (07:37)
[2022-06-24] MEDS ORDERED: IPRA0.00 NEB (07:37)
[2022-06-24] MEDS ORDERED: AMOX875T2 PO (07:38)
[2022-06-24] MEDS ORDERED: PRED20TA PO (07:38)
[2022-06-24 08:24] VITALS: BP 140/63
[2022-06-24] MEDS: OMEPRAZOLE 20MG CAP PO SCH (08:27)
[2022-06-24] MEDS: DOCUSATE SODIUM 100MG CAPSULE PO SCH (08:27)
[2022-06-24] MEDS: CARVedilol 12.5 MG TAB PO SCH (08:27)
[2022-06-24] MEDS: amLODIPine 5 MG TAB PO SCH (08:27)
[2022-06-24] MEDS: lisinopriL 40MG TAB PO SCH (08:27)
== END 2022-06-24 11:10 | disposition home health service (06) | DRG 189 ==
LOC: EDBD 08:56 → M ED 08:56 → M ED INP 17:01 → M PCU 21:56 → M MSPAV 06-23 19:01
PROVIDERS: ADMIT Internal Medicine Nephrology; ATTEND Internal Medicine Nephrology
DX: J96.21 Acute and chronic respiratory failure with hypoxia (principal); J44.1 Chronic obstructive pulmonary disease with (acute) exacerbation; J96.22 Acute and chronic respiratory failure with hypercapnia; I10 Essential (primary) hypertension; H91.93 Unspecified hearing loss, bilateral; K21.9 Gastro-esophageal reflux disease without esophagitis; I27.20 Pulmonary hypertension, unspecified; L40.9 Psoriasis, unspecified; Z86.16 Personal history of COVID-19; Z90.49 Acquired absence of other specified parts of digestive tract; Z87.891 Personal history of nicotine dependence; Z79.899 Other long term (current) drug therapy

== ENCOUNTER → 2022-10-25 | Outpatient (CLI) | payer MEDICARE ==
[~2022-10-25] MED LIST changes: +AMOX875T2 PO; +AZIT-12 PO; +IPRA0.00 NEB
== END ==
LOC: M LAB 12:17
PROVIDERS: ATTEND Internal Medicine Pulmonary Disease
DX: J44.9 Chronic obstructive pulmonary disease, unspecified (principal)

== ENCOUNTER 2022-11-01 13:01 | Emergency (ER) | payer MEDICARE, MEDICAID ==
[~2022-11-01] VITALS: Ht 165.1 cm; Wt 57.8 kg
[2022-11-01 14:06] LABS: BASO % 0.3 % (0.0-1.0); EOS % 0.1 % (0.0-3.0); HEMATOCRIT 46.1 % (36.0-47.0); HEMOGLOBIN 14.2 g/dl (12.0-15.5); LYMPH # 1.1 10^3/uL (1.5-5.0); MEAN CORPUSCULAR HGB CONC 30.8 g/dl (32.0-36.5); MEAN CORPUSCULAR VOLUME 94.3 fl (80.0-96.0); MONO # 0.4 10^3/uL (0.0-0.8); MONO % 3.1 % (2.0-8.0); NEUTROPHILS # 11.5 10^3/uL (1.5-8.5); NEUTROPHILS % 87.7 % (36.0-66.0); PLATELET COUNT, AUTOMATED 277 10^3/uL (150-450); RED BLOOD COUNT 4.89 10^6/uL (4.00-5.40); WHITE BLOOD COUNT 13.1 10^3/uL (4.0-10.0)
[2022-11-01 14:37] LABS: CPK CREATINE PHOSPHOKINASE 22 U/L (34-145)
[2022-11-01 14:48] LABS: ALBUMIN 3.7 G/DL (3.2-5.2); ALKALINE PHOSPHATASE 75 U/L (46-116); ALT/SGPT 16 U/L (7.0-40); AST/SGOT 29 U/L (<34); BILIRUBIN,DIRECT 0.2 MG/DL (<0.4); BILIRUBIN,TOTAL 0.7 MG/DL (0.3-1.2); BLOOD UREA NITROGEN 23 MG/DL (9-23); CALCIUM LEVEL 9.4 MG/DL (8.3-10.6); CARBON DIOXIDE LEVEL 36 MMOL/L (20-31); CHLORIDE LEVEL 103 MMOL/L (98-107); CK-MB VALUE MASS < 1.0 NG/ML (<3.6); CREATININE FOR GFR 0.69 MG/DL (0.55-1.30); GLOMERULAR FILTRATION RATE > 60.0 (>39); GLUCOSE, FASTING 231 MG/DL (74-106); MB/CK RELATIVE INDEX 4.54 (< OR =4); POTASSIUM SERUM 4.2 MMOL/L (3.5-5.1); SODIUM LEVEL 143 MMOL/L (136-145); THYROID STIMULATING HORMONE 0.593 uIU/ML (0.55-4.78); THYROXINE (T4) 7.3 UG/DL (4.5-10.9)
[2022-11-01 15:03] LABS: TOTAL PROTEIN 6.5 G/DL (5.7-8.2)
[2022-11-01 17:00] VITALS: BP 163/79
== END 2022-11-01 17:24 | disposition home or self-care (01) ==
LOC: M ED 13:01
DX: J44.9 Chronic obstructive pulmonary disease, unspecified (principal); R07.89 Other chest pain; I49.3 Ventricular premature depolarization; I11.0 Hypertensive heart disease with heart failure; I50.9 Heart failure, unspecified; K21.9 Gastro-esophageal reflux disease without esophagitis; R06.02 Shortness of breath; Z87.891 Personal history of nicotine dependence; Z79.899 Other long term (current) drug therapy

== ENCOUNTER → 2023-01-03 | Outpatient (CLI) | payer MEDICARE, MEDICAID ==
[2023-01-03 17:50] LABS: BASO # 0.1 10^3/uL (0.0-0.2); BASO % 0.5 % (0.0-1.0); EOS # 0.1 10^3/uL (0.0-0.5); EOS % 0.9 % (0.0-3.0); HEMATOCRIT 45.2 % (36.0-47.0); HEMOGLOBIN 14.2 g/dl (12.0-15.5); LYMPH # 2.3 10^3/uL (1.5-5.0); LYMPH % 16.5 % (24.0-44.0); MEAN CORPUSCULAR HEMOGLOBIN 30.1 pg (27.0-33.0); MEAN CORPUSCULAR HGB CONC 31.4 g/dl (32.0-36.5); MEAN CORPUSCULAR VOLUME 95.8 fl (80.0-96.0); MONO # 1.3 10^3/uL (0.0-0.8); MONO % 9.8 % (2.0-8.0); NEUTROPHILS # 9.8 10^3/uL (1.5-8.5); NEUTROPHILS % 71.6 % (36.0-66.0); PLATELET COUNT, AUTOMATED 295 10^3/uL (150-450); RED BLOOD COUNT 4.72 10^6/uL (4.00-5.40); WHITE BLOOD COUNT 13.7 10^3/uL (4.0-10.0)
[2023-01-03 18:24] LABS: ALBUMIN 3.7 G/DL (3.2-5.2); ALKALINE PHOSPHATASE 76 U/L (46-116); ALT/SGPT 20 U/L (7.0-40); AST/SGOT 26 U/L (<34); BILIRUBIN,TOTAL 0.4 MG/DL (0.3-1.2); BLOOD UREA NITROGEN 22 MG/DL (9-23); CALCIUM LEVEL 9.6 MG/DL (8.3-10.6); CARBON DIOXIDE LEVEL 35 MMOL/L (20-31); CHLORIDE LEVEL 106 MMOL/L (98-107); CHOLESTEROL LEVEL 214 MG/DL (<200); CREATININE FOR GFR 0.77 MG/DL (0.55-1.30); GLOMERULAR FILTRATION RATE > 60.0 (>39); GLUCOSE, FASTING 68 MG/DL (74-106); HDL CHOLESTEROL 82.2 MG/DL (>40); LDL CHOLESTEROL 98.4 MG/DL (<100); NON-HDL-C 131.8 MG/DL; POTASSIUM SERUM 4.6 MMOL/L (3.5-5.1); SODIUM LEVEL 146 MMOL/L (136-145); TOTAL PROTEIN 6.4 G/DL (5.7-8.2); TRIGLYCERIDES LEVEL 167 MG/DL (<150)
[2023-01-03 18:26] LABS: TOTAL 25(OH) VITAMIN D 26.4 NG/ML (20.0-100.0)
[2023-01-03 18:39] LABS: HEMOGLOBIN A1c 6.3 % (4.0-6.0)
== END ==
LOC: M PLALAB 15:47
PROVIDERS: ATTEND Nurse Practitioner Family
DX: E78.5 Hyperlipidemia, unspecified (principal); I10 Essential (primary) hypertension; E55.9 Vitamin D deficiency, unspecified; R73.01 Impaired fasting glucose

== ENCOUNTER → 2023-02-03 | Outpatient (CLI) | payer MEDICARE, MEDICAID ==
[~2023-02-03] MED LIST changes: +PERC5TAB12 PO
== END ==
LOC: M PLAIMG 11:46
PROVIDERS: ATTEND Nurse Practitioner Family
DX: M85.88 Other specified disorders of bone density and structure, other site (principal); M51.34 Other intervertebral disc degeneration, thoracic region; M53.84 Other specified dorsopathies, thoracic region

== ENCOUNTER 2023-02-19 09:53 | Emergency (ER) | payer MEDICARE, MEDICAID ==
[~2023-02-19] VITALS: Ht 165.1 cm; Wt 58.3 kg
[~2023-02-19 09:53] MED LIST changes: -PERC5TAB12 PO
[2023-02-19 09:54] VITALS: TEMP 97.9
[2023-02-19 11:25] LABS: BASO % 0.3 % (0.0-1.0); EOS % 0.2 % (0.0-3.0); HEMATOCRIT 45.3 % (36.0-47.0); HEMOGLOBIN 14.3 g/dl (12.0-15.5); LYMPH # 1.1 10^3/uL (1.5-5.0); LYMPH % 8.4 % (24.0-44.0); MEAN CORPUSCULAR HEMOGLOBIN 30.2 pg (27.0-33.0); MEAN CORPUSCULAR HGB CONC 31.6 g/dl (32.0-36.5); MEAN CORPUSCULAR VOLUME 95.6 fl (80.0-96.0); MONO # 0.3 10^3/uL (0.0-0.8); MONO % 2.3 % (2.0-8.0); NEUTROPHILS # 11.1 10^3/uL (1.5-8.5); NEUTROPHILS % 88.3 % (36.0-66.0); PLATELET COUNT, AUTOMATED 231 10^3/uL (150-450); RED BLOOD COUNT 4.74 10^6/uL (4.00-5.40); WHITE BLOOD COUNT 12.6 10^3/uL (4.0-10.0)
[2023-02-19] MEDS: MORPHINE 2 MG/ML 1ML VIAL IV PRN ×2 (11:36→12:10)
[2023-02-19 11:37] LABS: INR 0.9; PROTHROMBIN TIME 12.3 SECONDS (12.5-14.5)
[2023-02-19 11:38] LABS: PARTIAL THROMBOPLASTIN TIME 27.7 SECONDS (24.8-34.2)
[2023-02-19 11:48] LABS: LIPASE 23 U/L (12-53)
[2023-02-19 11:50] LABS: ALBUMIN 3.7 G/DL (3.2-5.2); ALKALINE PHOSPHATASE 96 U/L (46-116); ALT/SGPT 26 U/L (7.0-40); AST/SGOT 39 U/L (<34); BILIRUBIN,DIRECT 0.1 MG/DL (<0.4); BILIRUBIN,TOTAL 0.6 MG/DL (0.3-1.2); BLOOD UREA NITROGEN 28 MG/DL (9-23); CALCIUM LEVEL 9.6 MG/DL (8.3-10.6); CARBON DIOXIDE LEVEL 35 MMOL/L (20-31); CHLORIDE LEVEL 105 MMOL/L (98-107); CK-MB VALUE MASS 1.8 NG/ML (<3.6); CREATININE FOR GFR 0.57 MG/DL (0.55-1.30); GLOMERULAR FILTRATION RATE > 60.0 (>39); GLUCOSE, FASTING 137 MG/DL (74-106); POTASSIUM SERUM 4.4 MMOL/L (3.5-5.1); SODIUM LEVEL 145 MMOL/L (136-145); TOTAL PROTEIN 6.6 G/DL (5.7-8.2)
[2023-02-19 11:52] LABS: FREE T4 1.54 NG/DL (0.89-1.76)
[2023-02-19 11:54] LABS: CPK CREATINE PHOSPHOKINASE 38 U/L (34-145); MB/CK RELATIVE INDEX 4.73 (< OR =4)
[2023-02-19 12:02] LABS: RSV AMPLIFICATION NEGATIVE (NEGATIVE)
[2023-02-19] MEDS ORDERED: methylPREDNISolone 125MG 2ML VIAL IV ONE (12:05)
[2023-02-19] MEDS ORDERED: ALBUTEROL SULFATE 2.5MG/0.5ML INH NEB SOLN INH ONE (12:05)
[2023-02-19] MEDS ORDERED: IPRATROPIUM 0.5MG/ALBUTEROL 2.5MG INH SOL UD 3ML (DUONEB) NEB ONE (12:05)
[2023-02-19] MEDS ORDERED: ISOVUE-370 76% 100ML VIAL As Ordered ONE (12:05)
[2023-02-19 13:19] LABS: CK-MB VALUE MASS 1.8 NG/ML (<3.6)
[2023-02-19 13:24] LABS: MB/CK RELATIVE INDEX 5.62 (< OR =4)
[2023-02-19 13:25] VITALS: BP 135/69; O2SAT 100
[2023-02-19] MEDS ORDERED: PERC5TAB12 PO (13:54)
[2023-02-19] MEDS ORDERED: PRED20TA PO (13:55)
== END 2023-02-19 14:30 | disposition home or self-care (01) ==
LOC: M ED 09:53
DX: M54.9 Dorsalgia, unspecified (principal); M51.34 Other intervertebral disc degeneration, thoracic region; J44.1 Chronic obstructive pulmonary disease with (acute) exacerbation; I10 Essential (primary) hypertension; K21.9 Gastro-esophageal reflux disease without esophagitis; I27.20 Pulmonary hypertension, unspecified; Z79.899 Other long term (current) drug therapy; Z87.891 Personal history of nicotine dependence
CPT/HCPCS: 71045; 71275; 72072; 72110; 80048; 80076; 82330; 82550; 82553; 82947; 83690; 83880; 84132; 84295; 84439; 84443; 84484; 85014; 85025; 85610; 85730; 87040; 87631; 93005; 93041; 94640; 94760; 96374; 96375; 96376; 99285; J2930; Q9967

== ENCOUNTER 2023-03-26 11:09 | Inpatient (IN) | payer MEDICARE, MEDICAID ==
[~2023-03-26] VITALS: Ht 154.9 cm; Wt 59.3 kg
[2023-03-26] VITALS (32 sets, daily range): BP systolic 65–148; BP diastolic 40–71; TEMP 97.7; O2SAT 93–100
[~2023-03-26 11:09] MED LIST changes: +ALBU8.5H INH; +CALCIUM CHLORIDE 10% 1 GM/10 ML SYR ONE; +EPINEPHrine 1MG/10ML SYRINGE 1.5IN ONE; +GUAI20TA PO; +IPRA0.00 INH; +OMEP-173 PO; +PERC5TAB12 PO; +PRED50TA PO; +SODIUM BICARBONATE 8.4% INJ 50ML SYRINGE ONE
[2023-03-26] MEDS ORDERED: ROCURONIUM BROMIDE 50MG/5ML VIAL IV ONE (11:25)
[2023-03-26] MEDS ORDERED: ETOMIDATE INJ 20MG/10ML VIAL IV ONE (11:25)
[2023-03-26] MEDS ORDERED: DEXTROSE 50% 50ML SYRINGE IV STA (11:57)
[2023-03-26] MEDS ORDERED: HumuLIN R (REGULAR) INSULIN (NovoLIN R) **100U/ML** PER UNIT IV STA (11:57)
[2023-03-26] MEDS ORDERED: NS 1,700 ML in IV 1 EA IV ONE (12:10)
[2023-03-26 12:18] LABS: ABG BASE EXCESS 6.9 (-2.0-2.0); ABG HCO3 35.2 MMOL/L (22.0-26.0); ABG O2 SATURATION 99.6 % (95.0-99.0); ABG PARTIAL PRESSURE O2 264.8 mmHg (75.0-100.0); ABG STANDARD HCO3 30.8 MMOL/L. (22.0-26.0); ABG TOTAL CO2 37.4 MMOL/L (23.0-31.0); ABG pH (ARTERIAL) 7.319 UNITS (7.350-7.450)
[2023-03-26 12:19] LABS: ABG PARTIAL PRESSURE CO2 70.1 mmHg (35.0-45.0)
[2023-03-26 12:28] LABS: BASO # 0.1 10^3/uL (0.0-0.2); BASO % 0.6 % (0.0-1.0); HEMOGLOBIN 11.4 g/dl (12.0-15.5); LYMPH # 2.9 10^3/uL (1.5-5.0); MEAN CORPUSCULAR HEMOGLOBIN 30.8 pg (27.0-33.0); MEAN CORPUSCULAR VOLUME 102.7 fl (80.0-96.0); MONO # 0.6 10^3/uL (0.0-0.8); MONO % 4.2 % (2.0-8.0); NEUTROPHILS # 10.4 10^3/uL (1.5-8.5); NEUTROPHILS % 72.6 % (36.0-66.0); PLATELET COUNT, AUTOMATED 199 10^3/uL (150-450); WHITE BLOOD COUNT 14.4 10^3/uL (4.0-10.0)
[2023-03-26] MEDS ORDERED: DIGOXIN INJ 0.5 MG/2 ML AMP As Ordered ONE (12:31)
[2023-03-26] MEDS ORDERED: DIGOXIN INJ 0.5 MG/2 ML AMP IV STA (12:34)
[2023-03-26] MEDS: NOREPINEPHRINE 4MG IN D5 250ML 4 MG in IV 1 EA IV SCH ×10 (12:36→22:28)
[2023-03-26 12:39] LABS: CK-MB VALUE MASS 4.9 NG/ML (<3.6)
[2023-03-26 12:48] LABS: MB/CK RELATIVE INDEX 7.65 (< OR =4)
[2023-03-26] MEDS ORDERED: MED REC IN PROGRESS XX SCH (13:15)
[2023-03-26] MEDS ORDERED: MIDAZOLAM INJ 2MG/2ML VIAL As Ordered ONE ×2 (13:45→13:46)
[2023-03-26] MEDS ORDERED: MIDAZOLAM INJ 2MG/2ML VIAL IV STA (13:46)
[2023-03-26] MEDS ORDERED: CALCIUM GLUCONATE 1,000MG/10ML VIAL (100MG/ML) As Ordered ONE (13:59)
[2023-03-26] MEDS ORDERED: MIDAZOLAM INJ 2MG/2ML VIAL IV ONE (14:35)
[2023-03-26] MEDS ORDERED: MED REC CURRENTLY UNOBTAINABLE XX SCH (15:15)
[2023-03-26] MEDS: cefTRIAXone SOD 1 GM in D5W MINI-BAG PLUS 50 ML IV SCH (16:35)
[2023-03-26] MEDS ORDERED: OMEP1CAP73 PO (16:45)
[2023-03-26] MEDS ORDERED: FORM20VI2 INH (16:48)
[2023-03-26] MEDS ORDERED: HOME MED LIST COMPLETE! XX SCH (16:50)
[2023-03-26 17:04] LABS: CREATININE FOR GFR 1.28 MG/DL (0.55-1.30); GLOMERULAR FILTRATION RATE 43.8 (>39); POTASSIUM SERUM 7.1 MMOL/L (3.5-5.1)
[2023-03-26] MEDS ORDERED: HEPARIN SOD (PORCINE) 5000UNITS/ML 1ML VIAL/SYRINGE IV PRN (17:10)
[2023-03-26] MEDS ORDERED: HEPARIN SOD (PORCINE) 5000UNITS/ML 1ML VIAL/SYRINGE IV ONE (17:30)
[2023-03-26] MEDS: MIDAZOLAM 100MG/100ML-0.9%NACL 100 MG in IV 1 EA IV SCH (17:35)
[2023-03-26 17:58] LABS: ABG BASE EXCESS 11.2 (-2.0-2.0); ABG HCO3 37.8 MMOL/L (22.0-26.0); ABG O2 SATURATION 97.5 % (95.0-99.0); ABG PARTIAL PRESSURE CO2 59.2 mmHg (35.0-45.0); ABG PARTIAL PRESSURE O2 83.1 mmHg (75.0-100.0); ABG STANDARD HCO3 34.9 MMOL/L. (22.0-26.0); ABG TOTAL CO2 39.6 MMOL/L (23.0-31.0); ABG pH (ARTERIAL) 7.423 UNITS (7.350-7.450)
[2023-03-26] MEDS: VASOPRESSIN INJ 20 UNITS in NS 500 ML IV SCH (18:02)
[2023-03-26 18:04] LABS: BASO # 0.1 10^3/uL (0.0-0.2); BASO % 0.3 % (0.0-1.0); EOS % 0.1 % (0.0-3.0); HEMATOCRIT 38.3 % (36.0-47.0); HEMOGLOBIN 11.7 g/dl (12.0-15.5); LYMPH # 1.1 10^3/uL (1.5-5.0); LYMPH % 5.7 % (24.0-44.0); MEAN CORPUSCULAR HEMOGLOBIN 30.6 pg (27.0-33.0); MEAN CORPUSCULAR HGB CONC 30.5 g/dl (32.0-36.5); MEAN CORPUSCULAR VOLUME 100.3 fl (80.0-96.0); MONO # 1.1 10^3/uL (0.0-0.8); MONO % 5.5 % (2.0-8.0); NEUTROPHILS # 17.1 10^3/uL (1.5-8.5); NEUTROPHILS % 86.4 % (36.0-66.0); PLATELET COUNT, AUTOMATED 229 10^3/uL (150-450); RED BLOOD COUNT 3.82 10^6/uL (4.00-5.40); WHITE BLOOD COUNT 19.8 10^3/uL (4.0-10.0)
[2023-03-26] MEDS: IPRATROPIUM 0.5MG/ALBUTEROL 2.5MG INH SOL UD 3ML (DUONEB) NEB SCH ×2 (18:04→19:15)
[2023-03-26] MEDS: HYDROCORTISONE 100MG/2ML VIAL IV SCH (18:05)
[2023-03-26] MEDS: MORPHINE 4 MG/ML 1ML VIAL IV PRN (18:22)
[2023-03-26 18:24] LABS: ALBUMIN 2.8 G/DL (3.2-5.2); CALCIUM LEVEL 9.9 MG/DL (8.3-10.6); CREATININE FOR GFR 1.22 MG/DL (0.55-1.30); GLOMERULAR FILTRATION RATE 46.3 (>39); POTASSIUM SERUM 5.2 MMOL/L (3.5-5.1); TOTAL PROTEIN 5.3 G/DL (5.7-8.2)
[2023-03-26] MEDS: HEPARIN DRIP 25,000 UNITS in IV 1 EA IV SCH (18:37)
[2023-03-26] MEDS ORDERED: GLUCAGON INJ 1MG VIAL SC PRN (18:45)
[2023-03-26] MEDS ORDERED: DEXTROSE 50% 50ML SYRINGE IV PRN (18:45)
[2023-03-26] MEDS ORDERED: GLUCOSE 4GM CHEW TABLET PO PRN (18:45)
[2023-03-26] MEDS: INSULIN LISPRO (NovoLOG) PER UNIT SC SCH (19:27)
[2023-03-26] MEDS: CHLORHEXIDINE GLUCONATE 0.12 % 15ML UDC (PERIDEX ORAL RINSE) MT SCH (20:14)
[2023-03-26] MEDS ORDERED: HEPARIN SOD (PORCINE) 5000UNITS/ML 1ML VIAL/SYRINGE SC SCH (22:00)
[2023-03-27] VITALS (105 sets, daily range): BP systolic 66–172; BP diastolic 35–104; TEMP 97.2–98.5; O2SAT 89–100
[2023-03-27] MEDS: INSULIN LISPRO (NovoLOG) PER UNIT SC SCH ×4 (00:49→18:08)
[2023-03-27] MEDS: HYDROCORTISONE 100MG/2ML VIAL IV SCH ×4 (00:50→18:08)
[2023-03-27] MEDS: NOREPINEPHRINE 4MG IN D5 250ML 4 MG in IV 1 EA IV SCH ×10 (01:08→22:59)
[2023-03-27] MEDS: VASOPRESSIN INJ 20 UNITS in NS 500 ML IV SCH (02:53)
[2023-03-27 04:53] LABS: HEMATOCRIT 34.3 % (36.0-47.0); HEMOGLOBIN 10.7 g/dl (12.0-15.5); MEAN CORPUSCULAR HEMOGLOBIN 30.3 pg (27.0-33.0); MEAN CORPUSCULAR HGB CONC 31.2 g/dl (32.0-36.5); MEAN CORPUSCULAR VOLUME 97.2 fl (80.0-96.0); PLATELET COUNT, AUTOMATED 192 10^3/uL (150-450); RED BLOOD COUNT 3.53 10^6/uL (4.00-5.40); WHITE BLOOD COUNT 19.8 10^3/uL (4.0-10.0)
[2023-03-27 05:44] LABS: ABG BASE EXCESS 9.8 (-2.0-2.0); ABG HCO3 34.8 MMOL/L (22.0-26.0); ABG O2 SATURATION 94.3 % (95.0-99.0); ABG PARTIAL PRESSURE CO2 48.7 mmHg (35.0-45.0); ABG PARTIAL PRESSURE O2 62.4 mmHg (75.0-100.0); ABG STANDARD HCO3 33.5 MMOL/L. (22.0-26.0); ABG TOTAL CO2 36.3 MMOL/L (23.0-31.0); ABG pH (ARTERIAL) 7.472 UNITS (7.350-7.450)
[2023-03-27] MEDS: HEPARIN DRIP 25,000 UNITS in IV 1 EA IV SCH (05:55)
[2023-03-27 06:38] LABS: ALBUMIN 2.2 G/DL (3.2-5.2); CALCIUM LEVEL 8.9 MG/DL (8.3-10.6); CREATININE FOR GFR 1.19 MG/DL (0.55-1.30); GLOMERULAR FILTRATION RATE 47.6 (>39); MAGNESIUM LEVEL 1.6 MG/DL (1.8-2.4); PHOSPHORUS LEVEL 1.7 MG/DL (2.4-5.1); POTASSIUM SERUM 5.6 MMOL/L (3.5-5.1)
[2023-03-27] MEDS: MAG SULF 1GM/100ML (MAG RUN) 1 GM in IV 1 EA IV SCH ×2 (07:00→08:55)
[2023-03-27] MEDS ORDERED: NS 1,000 ML IV SCH (07:40)
[2023-03-27] MEDS: IPRATROPIUM 0.5MG/ALBUTEROL 2.5MG INH SOL UD 3ML (DUONEB) NEB SCH ×4 (07:48→19:04)
[2023-03-27] MEDS ORDERED: VASOPRESSIN INJ 20 UNITS in NS 499 ML IV SCH (08:02)
[2023-03-27] MEDS ORDERED: VANCOMYCIN HCL 1,000 MG, VIAL MATE ADAPTER 1 EACH in D5W 250 ML IV ONE (09:00)
[2023-03-27] MEDS ORDERED: SODIUM PHOSPHATE INJ 20 MMOL in D5W 250 ML IV ONE (09:00)
[2023-03-27] MEDS ORDERED: PATIROMER SORBITEX CALCIUM 8.4 GM POWDER PACKET (VELTASSA) PO ONE (09:00)
[2023-03-27] MEDS: PANTOPRAZOLE 40MG VIAL IV SCH (10:05)
[2023-03-27] MEDS: LEVEMIR (INSULIN DETEMIR) 1 UNITS/0.01ML SC SCH (10:05)
[2023-03-27] MEDS: CHLORHEXIDINE GLUCONATE 0.12 % 15ML UDC (PERIDEX ORAL RINSE) MT SCH ×2 (10:06→20:25)
[2023-03-27 10:08] LABS: PROCALCITONIN 0.71 ng/ml
[2023-03-27] MEDS: VASOPRESSIN INJ 20 UNITS in NS 499 ML IV SCH ×2 (11:00→19:16)
[2023-03-27] MEDS ORDERED: CALCIUM GLUCONATE 1,000 MG in D5W MINI-BAG PLUS 100 ML IV ONE (12:00)
[2023-03-27] MEDS ORDERED: VANCOMYCIN INTERMITTENT/PULSE DOSING BY CLINICAL PHARMACIST PER DOSING PROTOCOL XX SCH (12:55)
[2023-03-27] MEDS: MORPHINE 4 MG/ML 1ML VIAL IV PRN ×2 (12:59→18:19)
[2023-03-27] MEDS ORDERED: VANCOMYCIN HCL 500 MG in D5W MINI-BAG PLUS 100 ML IV ONE (14:00)
[2023-03-27 14:40] LABS: ALBUMIN 1.8 G/DL (3.2-5.2); ALKALINE PHOSPHATASE 100 U/L (46-116); ALT/SGPT 23 U/L (7.0-40); AST/SGOT 33 U/L (<34); BILIRUBIN,TOTAL 0.4 MG/DL (0.3-1.2); BLOOD UREA NITROGEN 38 MG/DL (9-23); CALCIUM LEVEL 8.5 MG/DL (8.3-10.6); CARBON DIOXIDE LEVEL 33 MMOL/L (20-31); CHLORIDE LEVEL 96 MMOL/L (98-107); CREATININE FOR GFR 0.93 MG/DL (0.55-1.30); GLOMERULAR FILTRATION RATE > 60.0 (>39); GLUCOSE, FASTING 263 MG/DL (74-106); MAGNESIUM LEVEL 2.2 MG/DL (1.8-2.4); PHOSPHORUS LEVEL 4.5 MG/DL (2.4-5.1); POTASSIUM SERUM 4.5 MMOL/L (3.5-5.1); SODIUM LEVEL 131 MMOL/L (136-145); TOTAL PROTEIN 3.9 G/DL (5.7-8.2)
[2023-03-27] MEDS: MIDAZOLAM 100MG/100ML-0.9%NACL 100 MG in IV 1 EA IV SCH (16:16)
[2023-03-27] MEDS: cefTRIAXone SOD 1 GM in D5W MINI-BAG PLUS 50 ML IV SCH (16:26)
[2023-03-28] VITALS (102 sets, daily range): BP systolic 78–150; BP diastolic 42–71; TEMP 97.3–98.5; O2SAT 88–98
[2023-03-28] MEDS: INSULIN LISPRO (NovoLOG) PER UNIT SC SCH ×5 (00:23→23:38)
[2023-03-28] MEDS: HYDROCORTISONE 100MG/2ML VIAL IV SCH ×5 (00:24→23:38)
[2023-03-28] MEDS: MORPHINE 4 MG/ML 1ML VIAL IV PRN ×4 (01:56→21:43)
[2023-03-28] MEDS: VASOPRESSIN INJ 20 UNITS in NS 499 ML IV SCH (03:31)
[2023-03-28 05:47] LABS: ABG BASE EXCESS 10.6 (-2.0-2.0); ABG HCO3 34.6 MMOL/L (22.0-26.0); ABG O2 SATURATION 90.3 % (95.0-99.0); ABG PARTIAL PRESSURE CO2 43.3 mmHg (35.0-45.0); ABG PARTIAL PRESSURE O2 53.8 mmHg (75.0-100.0); ABG STANDARD HCO3 34.2 MMOL/L. (22.0-26.0); ABG TOTAL CO2 35.9 MMOL/L (23.0-31.0)
[2023-03-28] MEDS: NOREPINEPHRINE 4MG IN D5 250ML 4 MG in IV 1 EA IV SCH ×4 (06:24→23:54)
[2023-03-28 06:37] LABS: HEMATOCRIT 29.2 % (36.0-47.0); HEMOGLOBIN 9.7 g/dl (12.0-15.5); MEAN CORPUSCULAR HEMOGLOBIN 30.5 pg (27.0-33.0); MEAN CORPUSCULAR HGB CONC 33.2 g/dl (32.0-36.5); MEAN CORPUSCULAR VOLUME 91.8 fl (80.0-96.0); PLATELET COUNT, AUTOMATED 168 10^3/uL (150-450); RED BLOOD COUNT 3.18 10^6/uL (4.00-5.40); WHITE BLOOD COUNT 18.5 10^3/uL (4.0-10.0)
[2023-03-28 07:09] LABS: VANCOMYCIN RANDOM 12.7 UG/ML
[2023-03-28 07:10] LABS: ALBUMIN 1.9 G/DL (3.2-5.2); BLOOD UREA NITROGEN 33 MG/DL (9-23); CALCIUM LEVEL 8.2 MG/DL (8.3-10.6); CARBON DIOXIDE LEVEL 38 MMOL/L (20-31); CHLORIDE LEVEL 96 MMOL/L (98-107); CREATININE FOR GFR 0.75 MG/DL (0.55-1.30); GLOMERULAR FILTRATION RATE > 60.0 (>39); GLUCOSE, FASTING 183 MG/DL (74-106); MAGNESIUM LEVEL 2.2 MG/DL (1.8-2.4); PHOSPHORUS LEVEL 3.6 MG/DL (2.4-5.1); POTASSIUM SERUM 4.6 MMOL/L (3.5-5.1); SODIUM LEVEL 138 MMOL/L (136-145)
[2023-03-28] MEDS: IPRATROPIUM 0.5MG/ALBUTEROL 2.5MG INH SOL UD 3ML (DUONEB) NEB SCH ×4 (07:32→20:11)
[2023-03-28] MEDS ORDERED: VANCOMYCIN HCL 500 MG in D5W MINI-BAG PLUS 100 ML IV SCH (08:00)
[2023-03-28] MEDS: PANTOPRAZOLE 40MG VIAL IV SCH (08:21)
[2023-03-28] MEDS: CHLORHEXIDINE GLUCONATE 0.12 % 15ML UDC (PERIDEX ORAL RINSE) MT SCH ×2 (08:21→20:19)
[2023-03-28] MEDS: LEVEMIR (INSULIN DETEMIR) 1 UNITS/0.01ML SC SCH (08:21)
[2023-03-28] MEDS: DOXYCYCLINE HYCLATE 100 MG in D5W MINI-BAG PLUS 100 ML IV SCH ×2 (09:49→20:19)
[2023-03-28] MEDS: cefTRIAXone SOD 1 GM in D5W MINI-BAG PLUS 50 ML IV SCH (16:18)
[2023-03-28] MEDS: MIDAZOLAM 100MG/100ML-0.9%NACL 100 MG in IV 1 EA IV SCH (17:20)
[2023-03-28] MEDS: LACRILUBE (AKWA TEARS) OPHTH OINT 3.5GM OU PRN (18:20)
[2023-03-28] MEDS: HEPARIN DRIP 25,000 UNITS in IV 1 EA IV SCH (20:34)
[2023-03-29] VITALS (87 sets, daily range): BP systolic 82–136; BP diastolic 45–93; TEMP 97.3–98.9; O2SAT 87–100
[2023-03-29] MEDS: MORPHINE 4 MG/ML 1ML VIAL IV PRN ×4 (02:09→22:16)
[2023-03-29 05:10] LABS: HEMATOCRIT 27.5 % (36.0-47.0); HEMOGLOBIN 9.3 g/dl (12.0-15.5); MEAN CORPUSCULAR HEMOGLOBIN 31.2 pg (27.0-33.0); MEAN CORPUSCULAR HGB CONC 33.8 g/dl (32.0-36.5); MEAN CORPUSCULAR VOLUME 92.3 fl (80.0-96.0); PLATELET COUNT, AUTOMATED 153 10^3/uL (150-450); RED BLOOD COUNT 2.98 10^6/uL (4.00-5.40); WHITE BLOOD COUNT 15.1 10^3/uL (4.0-10.0)
[2023-03-29 05:47] LABS: ABG BASE EXCESS 8.8 (-2.0-2.0); ABG HCO3 33.5 MMOL/L (22.0-26.0); ABG O2 SATURATION 94.5 % (95.0-99.0); ABG PARTIAL PRESSURE O2 74.1 mmHg (75.0-100.0); ABG STANDARD HCO3 32.6 MMOL/L. (22.0-26.0); ABG pH (ARTERIAL) 7.471 UNITS (7.350-7.450)
[2023-03-29] MEDS: HYDROCORTISONE 100MG/2ML VIAL IV SCH ×3 (06:03→18:26)
[2023-03-29] MEDS: INSULIN LISPRO (NovoLOG) PER UNIT SC SCH ×3 (06:04→18:26)
[2023-03-29] MEDS: LACRILUBE (AKWA TEARS) OPHTH OINT 3.5GM OU PRN ×2 (06:06→20:30)
[2023-03-29 06:09] LABS: ALBUMIN 1.9 G/DL (3.2-5.2); BLOOD UREA NITROGEN 33 MG/DL (9-23); CALCIUM LEVEL 8.2 MG/DL (8.3-10.6); CARBON DIOXIDE LEVEL 38 MMOL/L (20-31); CHLORIDE LEVEL 98 MMOL/L (98-107); CREATININE FOR GFR 0.72 MG/DL (0.55-1.30); GLOMERULAR FILTRATION RATE > 60.0 (>39); GLUCOSE, FASTING 200 MG/DL (74-106); MAGNESIUM LEVEL 2.1 MG/DL (1.8-2.4); PHOSPHORUS LEVEL 3.4 MG/DL (2.4-5.1); POTASSIUM SERUM 4.2 MMOL/L (3.5-5.1); SODIUM LEVEL 140 MMOL/L (136-145)
[2023-03-29] MEDS ORDERED: NYSTATIN 100,000 UNITS/GM TOPICAL PWD 15GM TOP PRN (06:40)
[2023-03-29] MEDS: IPRATROPIUM 0.5MG/ALBUTEROL 2.5MG INH SOL UD 3ML (DUONEB) NEB SCH ×4 (07:42→20:10)
[2023-03-29] MEDS ORDERED: ASPIRIN 81MG ENTERIC TABLET PO SCH (09:00)
[2023-03-29] MEDS: DOXYCYCLINE HYCLATE 100 MG in D5W MINI-BAG PLUS 100 ML IV SCH ×2 (10:28→20:35)
[2023-03-29] MEDS: PANTOPRAZOLE 40MG VIAL IV SCH (10:28)
[2023-03-29] MEDS: CHLORHEXIDINE GLUCONATE 0.12 % 15ML UDC (PERIDEX ORAL RINSE) MT SCH ×2 (10:28→20:30)
[2023-03-29] MEDS: LEVEMIR (INSULIN DETEMIR) 1 UNITS/0.01ML SC SCH (10:38)
[2023-03-29] MEDS: ENOXAPARIN 40MG/0.4ML SYRINGE (J1650 PER 10MG) SC SCH (12:26)
[2023-03-29] MEDS: ASPIRIN 81MG CHEW TABLET PO SCH (12:26)
[2023-03-29] MEDS: cefTRIAXone SOD 1 GM in D5W MINI-BAG PLUS 50 ML IV SCH (16:35)
[2023-03-29] MEDS: MIDAZOLAM 100MG/100ML-0.9%NACL 100 MG in IV 1 EA IV SCH (16:40)
[2023-03-30] VITALS (54 sets, daily range): BP systolic 87–156; BP diastolic 47–69; TEMP 96.7–98.9; O2SAT 88–96
[2023-03-30] MEDS: HYDROCORTISONE 100MG/2ML VIAL IV SCH ×3 (00:03→18:10)
[2023-03-30] MEDS: INSULIN LISPRO (NovoLOG) PER UNIT SC SCH ×5 (00:03→23:24)
[2023-03-30] MEDS: MORPHINE 4 MG/ML 1ML VIAL IV PRN ×3 (04:06→23:23)
[2023-03-30] MEDS: LACRILUBE (AKWA TEARS) OPHTH OINT 3.5GM OU PRN ×2 (04:08→20:00)
[2023-03-30 04:31] LABS: HEMATOCRIT 27.2 % (36.0-47.0); HEMOGLOBIN 8.6 g/dl (12.0-15.5); MEAN CORPUSCULAR HEMOGLOBIN 29.9 pg (27.0-33.0); MEAN CORPUSCULAR HGB CONC 31.6 g/dl (32.0-36.5); MEAN CORPUSCULAR VOLUME 94.4 fl (80.0-96.0); PLATELET COUNT, AUTOMATED 150 10^3/uL (150-450); RED BLOOD COUNT 2.88 10^6/uL (4.00-5.40)
[2023-03-30 05:11] LABS: ALBUMIN 1.8 G/DL (3.2-5.2); BLOOD UREA NITROGEN 35 MG/DL (9-23); CALCIUM LEVEL 8.3 MG/DL (8.3-10.6); CARBON DIOXIDE LEVEL 39 MMOL/L (20-31); CHLORIDE LEVEL 99 MMOL/L (98-107); CREATININE FOR GFR 0.66 MG/DL (0.55-1.30); GLOMERULAR FILTRATION RATE > 60.0 (>39); GLUCOSE, FASTING 177 MG/DL (74-106); MAGNESIUM LEVEL 2.2 MG/DL (1.8-2.4); PHOSPHORUS LEVEL 3.2 MG/DL (2.4-5.1); POTASSIUM SERUM 3.9 MMOL/L (3.5-5.1); SODIUM LEVEL 141 MMOL/L (136-145)
[2023-03-30 06:28] LABS: ABG BASE EXCESS 10.7 (-2.0-2.0); ABG HCO3 35.2 MMOL/L (22.0-26.0); ABG O2 SATURATION 91.6 % (95.0-99.0); ABG PARTIAL PRESSURE CO2 47.4 mmHg (35.0-45.0); ABG PARTIAL PRESSURE O2 61.2 mmHg (75.0-100.0); ABG STANDARD HCO3 34.3 MMOL/L. (22.0-26.0); ABG TOTAL CO2 36.7 MMOL/L (23.0-31.0); ABG pH (ARTERIAL) 7.489 UNITS (7.350-7.450)
[2023-03-30] MEDS: IPRATROPIUM 0.5MG/ALBUTEROL 2.5MG INH SOL UD 3ML (DUONEB) NEB SCH ×4 (07:23→19:51)
[2023-03-30] MEDS: ENOXAPARIN 40MG/0.4ML SYRINGE (J1650 PER 10MG) SC SCH (07:59)
[2023-03-30] MEDS: CHLORHEXIDINE GLUCONATE 0.12 % 15ML UDC (PERIDEX ORAL RINSE) MT SCH ×2 (07:59→20:03)
[2023-03-30] MEDS: PANTOPRAZOLE 40MG VIAL IV SCH (07:59)
[2023-03-30] MEDS: DOXYCYCLINE HYCLATE 100 MG in D5W MINI-BAG PLUS 100 ML IV SCH ×2 (07:59→20:03)
[2023-03-30] MEDS: ASPIRIN 81MG CHEW TABLET PO SCH (08:00)
[2023-03-30] MEDS: LEVEMIR (INSULIN DETEMIR) 1 UNITS/0.01ML SC SCH (08:01)
[2023-03-30] MEDS: dexmedeTOMidine 200 MCG in IV 1 EA IV SCH ×4 (08:16→23:45)
[2023-03-30 11:06] LABS: ABG BASE EXCESS 12.3 (-2.0-2.0); ABG O2 SATURATION 92.4 % (95.0-99.0); ABG PARTIAL PRESSURE CO2 48.7 mmHg (35.0-45.0); ABG PARTIAL PRESSURE O2 64.1 mmHg (75.0-100.0); ABG TOTAL CO2 38.4 MMOL/L (23.0-31.0); ABG pH (ARTERIAL) 7.498 UNITS (7.350-7.450)
[2023-03-30] MEDS ORDERED: fentaNYL 100 MCG/2 ML INJECTION IV ONE (15:55)
[2023-03-30] MEDS: cefTRIAXone SOD 1 GM in D5W MINI-BAG PLUS 50 ML IV SCH (16:02)
[2023-03-30] MEDS: MIDAZOLAM INJ 2MG/2ML VIAL IV PRN ×2 (20:00→21:30)
[2023-03-31] VITALS (55 sets, daily range): BP systolic 122–213; BP diastolic 59–101; TEMP 97.3–97.9; O2SAT 78–100
[2023-03-31] MEDS: MIDAZOLAM INJ 2MG/2ML VIAL IV PRN ×3 (00:30→04:19)
[2023-03-31] MEDS: LACRILUBE (AKWA TEARS) OPHTH OINT 3.5GM OU PRN (04:20)
[2023-03-31 04:31] LABS: HEMATOCRIT 27.7 % (36.0-47.0); HEMOGLOBIN 8.8 g/dl (12.0-15.5); MEAN CORPUSCULAR HEMOGLOBIN 29.8 pg (27.0-33.0); MEAN CORPUSCULAR HGB CONC 31.8 g/dl (32.0-36.5); MEAN CORPUSCULAR VOLUME 93.9 fl (80.0-96.0); PLATELET COUNT, AUTOMATED 142 10^3/uL (150-450); RED BLOOD COUNT 2.95 10^6/uL (4.00-5.40); WHITE BLOOD COUNT 11.4 10^3/uL (4.0-10.0)
[2023-03-31] MEDS: dexmedeTOMidine 200 MCG in IV 1 EA IV SCH (04:44)
[2023-03-31 05:00] LABS: BLOOD UREA NITROGEN 35 MG/DL (9-23); CALCIUM LEVEL 8.2 MG/DL (8.3-10.6); CARBON DIOXIDE LEVEL 38 MMOL/L (20-31); CHLORIDE LEVEL 102 MMOL/L (98-107); GLOMERULAR FILTRATION RATE > 60.0 (>39); GLUCOSE, FASTING 136 MG/DL (74-106); MAGNESIUM LEVEL 2.2 MG/DL (1.8-2.4); PHOSPHORUS LEVEL 3.6 MG/DL (2.4-5.1); POTASSIUM SERUM 3.5 MMOL/L (3.5-5.1); SODIUM LEVEL 143 MMOL/L (136-145)
[2023-03-31] MEDS: INSULIN LISPRO (NovoLOG) PER UNIT SC SCH ×3 (05:42→18:00)
[2023-03-31] MEDS: HYDROCORTISONE 100MG/2ML VIAL IV SCH (05:42)
[2023-03-31 06:05] LABS: ABG BASE EXCESS 11.7 (-2.0-2.0); ABG HCO3 36.4 MMOL/L (22.0-26.0); ABG O2 SATURATION 92.1 % (95.0-99.0); ABG PARTIAL PRESSURE CO2 49.1 mmHg (35.0-45.0); ABG PARTIAL PRESSURE O2 64.8 mmHg (75.0-100.0); ABG STANDARD HCO3 35.3 MMOL/L. (22.0-26.0); ABG TOTAL CO2 37.9 MMOL/L (23.0-31.0); ABG pH (ARTERIAL) 7.488 UNITS (7.350-7.450)
[2023-03-31] MEDS: IPRATROPIUM 0.5MG/ALBUTEROL 2.5MG INH SOL UD 3ML (DUONEB) NEB SCH ×4 (07:16→19:50)
[2023-03-31 08:47] LABS: ABG BASE EXCESS 8.6 (-2.0-2.0); ABG HCO3 32.2 MMOL/L (22.0-26.0); ABG O2 SATURATION 95.1 % (95.0-99.0); ABG PARTIAL PRESSURE CO2 40.2 mmHg (35.0-45.0); ABG STANDARD HCO3 32.4 MMOL/L. (22.0-26.0); ABG TOTAL CO2 33.4 MMOL/L (23.0-31.0); ABG pH (ARTERIAL) 7.521 UNITS (7.350-7.450)
[2023-03-31] MEDS: PANTOPRAZOLE 40MG VIAL IV SCH (09:14)
[2023-03-31] MEDS: ENOXAPARIN 40MG/0.4ML SYRINGE (J1650 PER 10MG) SC SCH (09:14)
[2023-03-31] MEDS: DOXYCYCLINE HYCLATE 100 MG in D5W MINI-BAG PLUS 100 ML IV SCH ×2 (09:14→20:33)
[2023-03-31] MEDS: ASPIRIN 81MG CHEW TABLET PO SCH (09:15)
[2023-03-31] MEDS: CHLORHEXIDINE GLUCONATE 0.12 % 15ML UDC (PERIDEX ORAL RINSE) MT SCH (09:15)
[2023-03-31] MEDS: LEVEMIR (INSULIN DETEMIR) 1 UNITS/0.01ML SC SCH (09:15)
[2023-03-31] MEDS ORDERED: METOPROLOL 5 MG/5 ML VIAL IV STA ×2 (11:25→11:28)
[2023-03-31] MEDS: amLODIPine 5 MG TAB PO SCH ×2 (13:00→13:55)
[2023-03-31] MEDS: CARVedilol 12.5 MG TAB PO SCH ×3 (13:00→20:34)
[2023-03-31] MEDS: methylPREDNISolone 40MG 1ML VIAL IV SCH ×2 (13:55→21:43)
[2023-03-31] MEDS: LABETALOL 100MG/20ML VIAL IV SCH ×2 (14:25→20:34)
[2023-03-31] MEDS: cefTRIAXone SOD 1 GM in D5W MINI-BAG PLUS 50 ML IV SCH (17:32)
[2023-03-31 17:34] LABS: ABG BASE EXCESS 6.1 (-2.0-2.0); ABG HCO3 34.1 MMOL/L (22.0-26.0); ABG O2 SATURATION 91.6 % (95.0-99.0); ABG PARTIAL PRESSURE O2 68.7 mmHg (75.0-100.0); ABG STANDARD HCO3 29.9 MMOL/L. (22.0-26.0); ABG TOTAL CO2 36.2 MMOL/L (23.0-31.0); ABG pH (ARTERIAL) 7.322 UNITS (7.350-7.450)
[2023-03-31 17:39] LABS: ABG PARTIAL PRESSURE CO2 67.4 mmHg (35.0-45.0)
[2023-03-31 19:50] LABS: ABG BASE EXCESS 6.8 (-2.0-2.0); ABG HCO3 34.4 MMOL/L (22.0-26.0); ABG O2 SATURATION 94.5 % (95.0-99.0); ABG PARTIAL PRESSURE O2 78.1 mmHg (75.0-100.0); ABG STANDARD HCO3 30.5 MMOL/L. (22.0-26.0); ABG TOTAL CO2 36.3 MMOL/L (23.0-31.0); ABG pH (ARTERIAL) 7.343 UNITS (7.350-7.450)
[2023-03-31 19:55] LABS: ABG PARTIAL PRESSURE CO2 64.7 mmHg (35.0-45.0)
[2023-03-31] MEDS: MORPHINE 4 MG/ML 1ML VIAL IV PRN (20:35)
[2023-03-31 23:28] LABS: ABG BASE EXCESS 10.4 (-2.0-2.0); ABG HCO3 36.7 MMOL/L (22.0-26.0); ABG PARTIAL PRESSURE CO2 58.8 mmHg (35.0-45.0); ABG STANDARD HCO3 34.1 MMOL/L. (22.0-26.0); ABG TOTAL CO2 38.5 MMOL/L (23.0-31.0); ABG pH (ARTERIAL) 7.413 UNITS (7.350-7.450)
[2023-04-01] VITALS (46 sets, daily range): BP systolic 139–182; BP diastolic 67–94; TEMP 97.1–98.3; O2SAT 87–100
[2023-04-01] MEDS: LABETALOL 100MG/20ML VIAL IV SCH ×4 (03:00→20:16)
[2023-04-01 05:48] LABS: ABG BASE EXCESS 8.6 (-2.0-2.0); ABG HCO3 36.6 MMOL/L (22.0-26.0); ABG O2 SATURATION 97.9 % (95.0-99.0); ABG PARTIAL PRESSURE O2 129.7 mmHg (75.0-100.0); ABG STANDARD HCO3 32.4 MMOL/L. (22.0-26.0); ABG TOTAL CO2 38.8 MMOL/L (23.0-31.0); ABG pH (ARTERIAL) 7.329 UNITS (7.350-7.450)
[2023-04-01 05:54] LABS: ABG PARTIAL PRESSURE CO2 71.2 mmHg (35.0-45.0)
[2023-04-01] MEDS: INSULIN LISPRO (NovoLOG) PER UNIT SC SCH ×5 (06:00→20:16)
[2023-04-01 06:19] LABS: HEMATOCRIT 33.1 % (36.0-47.0); HEMOGLOBIN 10.2 g/dl (12.0-15.5); MEAN CORPUSCULAR HEMOGLOBIN 30.2 pg (27.0-33.0); MEAN CORPUSCULAR HGB CONC 30.8 g/dl (32.0-36.5); MEAN CORPUSCULAR VOLUME 97.9 fl (80.0-96.0); PLATELET COUNT, AUTOMATED 185 10^3/uL (150-450); RED BLOOD COUNT 3.38 10^6/uL (4.00-5.40); WHITE BLOOD COUNT 18.3 10^3/uL (4.0-10.0)
[2023-04-01] MEDS: methylPREDNISolone 40MG 1ML VIAL IV SCH ×3 (06:19→22:09)
[2023-04-01 06:41] LABS: BLOOD UREA NITROGEN 38 MG/DL (9-23); CALCIUM LEVEL 8.6 MG/DL (8.3-10.6); CARBON DIOXIDE LEVEL 39 MMOL/L (20-31); CHLORIDE LEVEL 104 MMOL/L (98-107); CREATININE FOR GFR 0.55 MG/DL (0.55-1.30); GLOMERULAR FILTRATION RATE > 60.0 (>39); GLUCOSE, FASTING 117 MG/DL (74-106); MAGNESIUM LEVEL 2.1 MG/DL (1.8-2.4); POTASSIUM SERUM 4.2 MMOL/L (3.5-5.1); SODIUM LEVEL 146 MMOL/L (136-145)
[2023-04-01 07:08] LABS: ATYPICAL LYMPH 4 % (0-5); LYMPHOCYTES 3 % (16-44); METAMYELOCYTES 2 % (0-0); MONOCYTES 1 % (0-5); MYELOCYTES 1 % (0-0); NEUTROPHILS 84 % (28-66)
[2023-04-01 07:10] LABS: ANISOCYTOSIS 1+; PLATELET ESTIMATE NORMAL (NORMAL)
[2023-04-01 07:11] LABS: POLYCHROMASIA 1+
[2023-04-01 07:12] LABS: TEAR DROP CELLS 1+
[2023-04-01] MEDS: IPRATROPIUM 0.5MG/ALBUTEROL 2.5MG INH SOL UD 3ML (DUONEB) NEB SCH ×4 (07:19→19:40)
[2023-04-01] MEDS: CARVedilol 12.5 MG TAB PO SCH ×2 (09:00→20:48)
[2023-04-01] MEDS: ASPIRIN 81MG CHEW TABLET PO SCH (09:00)
[2023-04-01] MEDS: amLODIPine 5 MG TAB PO SCH (09:00)
[2023-04-01] MEDS: PANTOPRAZOLE 40MG VIAL IV SCH (11:00)
[2023-04-01] MEDS: LEVEMIR (INSULIN DETEMIR) 1 UNITS/0.01ML SC SCH (11:01)
[2023-04-01] MEDS: ENOXAPARIN 40MG/0.4ML SYRINGE (J1650 PER 10MG) SC SCH (11:01)
[2023-04-01] MEDS: DOXYCYCLINE HYCLATE 100 MG in D5W MINI-BAG PLUS 100 ML IV SCH ×2 (11:01→20:47)
[2023-04-01] MEDS ORDERED: GLUCAGON INJ 1MG VIAL SC PRN (12:25)
[2023-04-01] MEDS ORDERED: GLUCOSE 4GM CHEW TABLET PO PRN (12:25)
[2023-04-01] MEDS ORDERED: DEXTROSE 50% 50ML SYRINGE IV PRN (12:25)
[2023-04-01] MEDS: cefTRIAXone SOD 1 GM in D5W MINI-BAG PLUS 50 ML IV SCH (17:45)
[2023-04-01] MEDS ORDERED: IPRATROPIUM 0.5MG/ALBUTEROL 2.5MG INH SOL UD 3ML (DUONEB) NEB PRN (17:55)
[2023-04-01] MEDS ORDERED: ACETAMINOPH W/CODEINE #3 TAB UD PO PRN (18:20)
[2023-04-01] MEDS: MORPHINE 4 MG/ML 1ML VIAL IV PRN (22:09)
[2023-04-02] VITALS (37 sets, daily range): BP systolic 118–190; BP diastolic 56–89; TEMP 97–98.1; O2SAT 92–100
[2023-04-02] MEDS: LABETALOL 100MG/20ML VIAL IV SCH ×2 (03:00→03:49)
[2023-04-02] MEDS ORDERED: amLODIPine 5 MG TAB PO ONE (05:30)
[2023-04-02] MEDS: methylPREDNISolone 40MG 1ML VIAL IV SCH ×2 (05:33→18:04)
[2023-04-02 05:37] LABS: HEMATOCRIT 32.3 % (36.0-47.0); MEAN CORPUSCULAR HEMOGLOBIN 30.5 pg (27.0-33.0); MEAN CORPUSCULAR VOLUME 98.5 fl (80.0-96.0); PLATELET COUNT, AUTOMATED 208 10^3/uL (150-450); RED BLOOD COUNT 3.28 10^6/uL (4.00-5.40)
[2023-04-02 06:15] LABS: LYMPHOCYTES 8 % (16-44); MONOCYTES 7 % (0-5); NEUTROPHILS 84 % (28-66)
[2023-04-02 06:16] LABS: HYPOCHROMASIA 1+; PLATELET ESTIMATE NORMAL (NORMAL)
[2023-04-02 06:17] LABS: ANISOCYTOSIS 1+
[2023-04-02 06:43] LABS: BLOOD UREA NITROGEN 46 MG/DL (9-23); CALCIUM LEVEL 8.5 MG/DL (8.3-10.6); CARBON DIOXIDE LEVEL 39 MMOL/L (20-31); CHLORIDE LEVEL 104 MMOL/L (98-107); CREATININE FOR GFR 0.59 MG/DL (0.55-1.30); GLOMERULAR FILTRATION RATE > 60.0 (>39); GLUCOSE, FASTING 114 MG/DL (74-106); MAGNESIUM LEVEL 2.3 MG/DL (1.8-2.4); POTASSIUM SERUM 4.5 MMOL/L (3.5-5.1); SODIUM LEVEL 147 MMOL/L (136-145)
[2023-04-02] MEDS: INSULIN LISPRO (NovoLOG) PER UNIT SC SCH ×4 (07:30→20:39)
[2023-04-02] MEDS: IPRATROPIUM 0.5MG/ALBUTEROL 2.5MG INH SOL UD 3ML (DUONEB) NEB SCH ×4 (07:53→19:58)
[2023-04-02] MEDS: NS 0.45% 1,000 ML IV SCH ×2 (08:14→18:04)
[2023-04-02] MEDS: ENOXAPARIN 40MG/0.4ML SYRINGE (J1650 PER 10MG) SC SCH (08:14)
[2023-04-02] MEDS: LEVEMIR (INSULIN DETEMIR) 1 UNITS/0.01ML SC SCH (08:14)
[2023-04-02] MEDS: PANTOPRAZOLE 40MG VIAL IV SCH (08:15)
[2023-04-02] MEDS: **hydrALAZINE** 10 MG TAB PO SCH ×4 (08:16→20:39)
[2023-04-02] MEDS: CARVedilol 12.5 MG TAB PO SCH ×2 (08:16→20:45)
[2023-04-02] MEDS: ASPIRIN 81MG CHEW TABLET PO SCH (08:16)
[2023-04-02] MEDS ORDERED: guaiFENesin DM LIQ 10ML UD PO PRN (13:35)
[2023-04-03 05:45] VITALS: BP 115/57; TEMP 98.2; O2SAT 93
[2023-04-03] MEDS: methylPREDNISolone 40MG 1ML VIAL IV SCH (06:02)
[2023-04-03 06:36] LABS: HEMATOCRIT 37.4 % (36.0-47.0); HEMOGLOBIN 11.6 g/dl (12.0-15.5); MEAN CORPUSCULAR HEMOGLOBIN 30.9 pg (27.0-33.0); MEAN CORPUSCULAR VOLUME 99.7 fl (80.0-96.0); PLATELET COUNT, AUTOMATED 305 10^3/uL (150-450); RED BLOOD COUNT 3.75 10^6/uL (4.00-5.40); WHITE BLOOD COUNT 20.8 10^3/uL (4.0-10.0)
[2023-04-03 07:08] LABS: BLOOD UREA NITROGEN 54 MG/DL (9-23); CALCIUM LEVEL 8.9 MG/DL (8.3-10.6); CARBON DIOXIDE LEVEL 36 MMOL/L (20-31); CHLORIDE LEVEL 103 MMOL/L (98-107); GLOMERULAR FILTRATION RATE > 60.0 (>39); GLUCOSE, FASTING 103 MG/DL (74-106); MAGNESIUM LEVEL 2.4 MG/DL (1.8-2.4); POTASSIUM SERUM 5.2 MMOL/L (3.5-5.1); SODIUM LEVEL 144 MMOL/L (136-145)
[2023-04-03] MEDS: IPRATROPIUM 0.5MG/ALBUTEROL 2.5MG INH SOL UD 3ML (DUONEB) NEB SCH ×3 (07:15→15:23)
[2023-04-03] MEDS: INSULIN LISPRO (NovoLOG) PER UNIT SC SCH ×2 (07:30→11:41)
[2023-04-03 07:53] LABS: LYMPHOCYTES 9 % (16-44); MONOCYTES 2 % (0-5); NEUTROPHILS 89 % (28-66)
[2023-04-03 07:54] LABS: ANISOCYTOSIS 1+; PLATELET ESTIMATE NORMAL (NORMAL)
[2023-04-03 07:55] LABS: HYPOCHROMASIA 1+
[2023-04-03] MEDS: PANTOPRAZOLE 40MG VIAL IV SCH (08:48)
[2023-04-03] MEDS: ASPIRIN 81MG CHEW TABLET PO SCH (08:48)
[2023-04-03] MEDS: ENOXAPARIN 40MG/0.4ML SYRINGE (J1650 PER 10MG) SC SCH (08:49)
[2023-04-03] MEDS: LEVEMIR (INSULIN DETEMIR) 1 UNITS/0.01ML SC SCH (08:49)
[2023-04-03] MEDS: CARVedilol 12.5 MG TAB PO SCH (08:51)
[2023-04-03] MEDS: **hydrALAZINE** 10 MG TAB PO SCH ×3 (08:52→15:58)
[2023-04-03 12:45] VITALS: BP 90/50
[2023-04-03 14:00] VITALS: BP 106/51; TEMP 96.5; O2SAT 97
[2023-04-03 15:58] VITALS: BP 106/51
[2023-04-03] MEDS ORDERED: methylPREDNISolone 125MG 2ML VIAL IV ONE (16:35)
[2023-04-03] MEDS ORDERED: MIDODRINE 5 MG TAB PO ONE (16:35)
[2023-04-03] MEDS ORDERED: IPRATROPIUM 0.5MG/ALBUTEROL 2.5MG INH SOL UD 3ML (DUONEB) NEB SCH (16:45)
[2023-04-03] MEDS ORDERED: LORazepam 2 MG/ML 1ML VIAL IV STA ×2 (16:47→16:51)
[2023-04-03] MEDS ORDERED: MORPHINE 2 MG/ML 1ML VIAL IV ONE (16:50)
[2023-04-03 16:54] LABS: ABG BASE EXCESS 3.1 (-2.0-2.0); ABG HCO3 36.2 MMOL/L (22.0-26.0); ABG O2 SATURATION 65.1 % (95.0-99.0); ABG PARTIAL PRESSURE CO2 122.5 mmHg (35.0-45.0); ABG PARTIAL PRESSURE O2 38.7 mmHg (75.0-100.0); ABG STANDARD HCO3 26.5 MMOL/L. (22.0-26.0); ABG pH (ARTERIAL) 7.089 UNITS (7.350-7.450)
[2023-04-03] MEDS ORDERED: ONDANSETRON 4MG 2ML VIAL IV PRN (16:55)
[2023-04-03] MEDS ORDERED: LORazepam 2 MG/ML 1ML VIAL IV PRN (16:55)
[2023-04-03] MEDS ORDERED: SCOPOLAMINE 1MG TRANSDERMAL PATCH TOP PRN (16:55)
[2023-04-03] MEDS ORDERED: MORPHINE SULF IN 0.9% NACL 100 MG in IV 1 EA IV SCH ×4 (17:10→18:00)
== END 2023-04-03 20:20 | disposition expired | DRG 871 ==
LOC: M ED 11:09 → EDBD 11:09 → M ED INP 12:49 → ENRESERV 16:49 → M ICU 17:14 → M MS4PR 04-02 17:04 → M PM&R 04-04 01:19 → M MS4PR 04-04 01:19 → UNDODISIN 04-04 01:30
PROVIDERS: ADMIT Internal Medicine Pulmonary Disease; ATTEND General Practice
PROC: 5A1945Z Respiratory Ventilation, 24-96 Consecutive Hours (ICD-10-PCS; principal; 2023-03-26)
PROC: 02HV33Z Insertion of Infusion Device into Superior Vena Cava, Percutaneous Approach (ICD-10-PCS; 2023-03-26)
PROC: B246ZZZ Ultrasonography of Right and Left Heart (ICD-10-PCS; 2023-03-27)
DX: A41.9 Sepsis, unspecified organism (principal); J96.21 Acute and chronic respiratory failure with hypoxia; J15.6 Pneumonia due to other Gram-negative bacteria; R65.21 Severe sepsis with septic shock; J96.22 Acute and chronic respiratory failure with hypercapnia; G93.41 Metabolic encephalopathy; J44.0 Chronic obstructive pulmonary disease with (acute) lower respiratory infection; J96.12 Chronic respiratory failure with hypercapnia; N17.9 Acute kidney failure, unspecified; E87.20 Acidosis, unspecified; E87.4 Mixed disorder of acid-base balance; J90 Pleural effusion, not elsewhere classified; I25.10 Atherosclerotic heart disease of native coronary artery without angina pectoris; K21.9 Gastro-esophageal reflux disease without esophagitis; I95.9 Hypotension, unspecified; E87.5 Hyperkalemia; I46.8 Cardiac arrest due to other underlying condition; I10 Essential (primary) hypertension; I48.0 Paroxysmal atrial fibrillation; E83.42 Hypomagnesemia; Z87.891 Personal history of nicotine dependence; Z66 Do not resuscitate; Z79.899 Other long term (current) drug therapy; I27.20 Pulmonary hypertension, unspecified; D63.8 Anemia in other chronic diseases classified elsewhere